=== PATIENT | male | born 1930 | race Caucasian/White ===

== ENCOUNTER 2016-07-21 19:35 | Emergency (ER) | payer OTHER ==
[~2016-07-21] VITALS: Ht 167.6 cm; Wt 81.6 kg
[~2016-07-21 19:35] MED LIST: ALLOPURINOL100 MG PO; ALLOPURINOL300 M1 PO; ALLOPURINOL300 MG PO; ASPIR 8181 MG PO; CARDIZEM CD180 M1 PO; COUMADIN1 M1 PO; COUMADIN6 M1 PO; FINASTERIDE5 MG PO; GEMFIBROZIL600 MG PO; GLUCOSAMINE500 MG PO; JANUMET 50-1,01 EACH PO; JANUVIA 50MG50 MG PO; KEPPRA500 M1 PO; LASIX20 M1 PO; MELATONIN3 M4 PO; METFORMIN1000 MG PO; METOPROLOL SUC200 M2 PO; METOPROLOL TART50 MG PO; OMEPRAZOLE40 MG PO; PERCOCET 325 MG1 TA2 PO; PROBENECID AND1 TAB PO; TAMSULOSIN HYD0.4 MG PO; TOPROL XL100 M1 PO
[2016-07-21 19:44] VITALS: BP 156/74
--- NOTE | 2016-07-21 20:00 | ED UPPER/LOWER EXTREMITY COMPL ---
History of Present Illness General Chief Complaint: Lower Extremity Injury Stated Complaint: "FELL A WEEK AGO, LEFT LEG PAIN" PER PT Source: patient Exam Limitations: no limitations Vital Signs & Intake/Output Vital Signs & Intake/Output Vital Signs Date Time Temp Pulse Resp B/P B/P Pulse O2 O2 Flow FiO2 Mean Ox Delivery Rate 07/22 1943 98.6 65 20 156/74 96 Room Air ED Intake and Output 07/22 0000 07/21 1200 Intake Total 120 Output Total Balance 120 Intake, Oral 120 Patient 180 lb Weight Allergies Coded Allergies: NO KNOWN ALLERGIES (10/30/13) Reconcile Medications Allopurinol 300 MG TABLET 1 TAB PO DAILY GOUT (Reported) Aspirin (Ecotrin) 81 MG TABLET.DR 1 TAB PO DAILY HEART HEALTH (Reported) Diltiazem HCl (Cardizem Cd) 180 MG CAP.ER.24H 1 CAP PO DAILY HIGH BLOOD PRESSURE (Reported) Finasteride 5 MG TABLET 1 TAB PO DAILY BPH (Reported) Furosemide (Lasix) 20 MG TABLET 1 TAB PO DAILY WATER RETENTION (Reported) Glucosamine Sulfate (Glucosamine) 500 MG CAP 1 CAP PO DAILY OSTEOARTHRITIS ( Reported) Levetiracetam (Keppra) 500 MG TABLET 500 MG PO BID Seizure Melatonin 3 MG TABLET 1 TAB PO QPM Sleep aid Metoprolol Succinate 200 MG TAB.ER.24H 1 TAB PO 8AM HIGH BLOOD PRESSURE ( Reported) Omeprazole 40 MG CAPSULE.DR 1 CAP PO DAILY GERD (Reported) Oxycodone HCl 5 MG TABLET 1 TAB PO BIDP PRN PAIN Sitagliptin Phos/Metformin HCl (Janumet 50-1,000 MG Tablet) 1 EACH TABLET 1 TAB PO DAILY DIABETES (Reported) Warfarin Sodium (Coumadin) 1 MG TABLET 1 TAB PO DAILY BLOOD THINNER (Reported ) As part of 7MG dosing on Tuesdays and Wednesdays Warfarin Sodium (Coumadin) 6 MG TABLET 1 TAB PO SEE ADMIN CRITERIA BLOOD THINNER (Reported) Pt takes 7MG on Tuesdays and Wednesdays and Takes 6MG rest of the days of the week. Triage Note: PER PT FELL OUT OF BED 2 WEEKS CONTINUES WITH PAIN TO L THIGH ALSO WITH SWELLING, NO KNEE PAIN Triage Nurses Notes Reviewed? yes Onset: Abrupt Duration: week(s): (2) Timing: recent history Severity: mild, moderate Pain/Injury Location: Left: Thigh. Method of Injury: direct blow Modifying Factors: Worsens With: movement. Associated Symptoms: swelling HPI: 85 year old male on Coumadin who presents to the ER with chief complaint left thigh swelling for 2 weeks after fall out of bed. He states that he hit his left thigh on the dresser. Patient is on Coumadin and has also been using Advil for pain. He states that swelling has been persistent but today got a little bit worse. No fever or chills. He has been able to a minute on it without any difficulty. Past History Travel History Traveled to [place] past 21 day No Medical History Any Pertinent Medical History? 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 No Review of Systems Review of Systems Constitutional: Denies: chills, fever. EENTM: Reports: no symptoms. Respiratory: Denies: see HPI, short of breath. Cardiovascular: Denies: chest pain, palpitations. Gastrointestinal/Abdominal: Reports: no symptoms. Genitourinary: Reports: no symptoms. Musculoskeletal: Reports: muscle pain. Skin: Reports: no symptoms. Neurological/Psychological: Reports: no symptoms. Hematologic/Endocrine: Denies: bruising, bleeding, polyuria, polydipsia. Immunological: Denies: splenectomy. All Other Systems: Reviewed and Negative Physical Exam Physical Exam General Appearance: well developed/nourished, alert, awake, mild distress Head: atraumatic Eyes: Bilateral: PERRL, EOMI. Ears, Nose, Throat: normal pharynx, normal ENT inspection, hearing grossly normal Neck: normal inspection, supple Cardiovascular/Respiratory: regular rate/rhythm Back: normal inspection Leg Left: normal range of motion, normal inspection Leg Right: normal range of motion, normal inspection Hip Left: normal range of motion, normal inspection Hip Right: normal range of motion, normal inspection Knee Left: normal range of motion, normal inspection Knee Right: normal range of motion Foot Left: normal inspection, normal range of motion Neurologic/Tendon: normal sensation, normal motor functions, normal tendon functions Skin: intact, normal color, warm/dry Lymphatic: no anterior cervical jacob Diagram Legs Front/Back 1) HEMATOMA NO ERYTHEMA, NO WARMTH Progress Differential Diagnosis: sprain, FRACTURE, HEMATOMA Plan of Care: Current Medications Sig/Pablo Start time Last Medication Dose Stop Time Status Admin Oxycodone/ 1 TAB ONCE ONE 07/21 2044 UNVr 07/21 Acetaminophen 07/21 (Percocet) Diagnostic Imaging: Viewed by Me: Radiology Read. Discussed w/RAD: Radiology Read. Radiology Impression: PATIENT: MECHELLE SPAIN PRESENT AGE : 85 PATIENT ACCOUNT NO: [id number] : 32 LOCATION: [facility] ORDERING PHYSICIAN: JAMILA GUERRA MD SERVICE DATE: 07/21/16 EXAM TYPE: RAD - XRY -AP PELVIS; XRY-FEMUR, LEFT 2 VIEWS EXAMINATION: XR PELVIS XR FEMUR, LEFT CLINICAL INFORMATION: Fell out of bed 2 weeks ago. Pain to thigh. COMPARISON: None TECHNIQUE: Frontal view of the pelvis. 2 views, 4 images of the left femur. FINDINGS: Pelvis: No fracture or dislocation. The femoral heads are well-seated within their respective acetabula. Mild degenerative changes of the hips with joint space narrowing. Degenerative changes at the lower lumbar spine. The pelvic rim is intact. The bowel gas pattern is unremarkable. Left femur: No fracture or cortical disruption. Anatomic alignment at the hip and knee. Moderate degenerative changes of the knee. Diffuse vascular calcifications are noted. Soft tissue calcification seen lateral to the distal femur.. IMPRESSION: No acute osseous abnormality of the pelvis or left femur. Degenerative changes. DICTATED BY: KIMBERLY MONTANEZ MD DATE/TIME DICTATED:07/21/162027 GUEST SERVICE AGENT:LILI DATE/TIME TRANSCRIBED:07/21/162027 CONFIDENTIAL, DO NOT COPY WITHOUT APPROPRIATE AUTHORIZATION. <Electronically signed in Other Vendor System> SIGNED BY: KIMBERLY MONTANEZ MD 07/21/162032 Departure Departure Time of Disposition: 2036 Disposition: HOME OR SELF CARE Condition: Stable Clinical Impression Primary Impression: Hematoma of left thigh Referrals: YAEL MADDOX,[facility] (PCP/Family) Additional Instructions: Take Tylenol as needed for pain. Take the oxycodone for break through pain. Please follow up with outpatient ultrasound tomorrow. Follow up with her doctor in the office. Return as needed. Departure Forms: Customer Survey General Discharge Information Prescriptions: Current Visit Scripts Oxycodone HCl 1 TAB PO BIDP PRN PAIN #10 TAB
--- NOTE | 2016-07-21 20:33 | RADIOLOGY REPORT ---
EXAMINATION: XR PELVIS XR FEMUR, LEFT CLINICAL INFORMATION: Fell out of bed 2 weeks ago. Pain to thigh. COMPARISON: None TECHNIQUE: Frontal view of the pelvis. 2 views, 4 images of the left femur. FINDINGS: Pelvis: No fracture or dislocation. The femoral heads are well-seated within their respective acetabula. Mild degenerative changes of the hips with joint space narrowing. Degenerative changes at the lower lumbar spine. The pelvic rim is intact. The bowel gas pattern is unremarkable. Left femur: No fracture or cortical disruption. Anatomic alignment at the hip and knee. Moderate degenerative changes of the knee. Diffuse vascular calcifications are noted. Soft tissue calcification seen lateral to the distal femur.. IMPRESSION: No acute osseous abnormality of the pelvis or left femur. Degenerative changes.
[2016-07-21] MEDS ORDERED: OXYCODONE HCL5 M1 PO (20:38)
== END 2016-07-21 20:45 ==
LOC: ERH 19:35
DX: S70.12XA Contusion of left thigh, initial encounter (principal); M79.89 Other specified soft tissue disorders; W06.XXXA Fall from bed, initial encounter; Y92.9 Unspecified place or not applicable; Y93.9 Activity, unspecified
CPT/HCPCS: 72170; 73552

== ENCOUNTER 2017-08-22 02:34 | Inpatient (IN) | payer OTHER ==
[~2017-08-22] VITALS: Ht 167.6 cm; Wt 82.6 kg
[~2017-08-22 02:34] MED LIST changes: +ALA-CORT30 GM TOP; -ASPIR 8181 MG PO; +ASPIRIN EC81 M1 PO; -CARDIZEM CD180 M1 PO; +CARDIZEM CD360 M1 PO; +DOXYCYCLINE HY100 M4 PO; +OMEPRAZOLE40 M1 PO; -OMEPRAZOLE40 MG PO; +OXYCODONE HCL5 M1 PO; +PREDNISONE10 M2 PO; +PROVENTIL HFA6.7 GM INH
--- NOTE | 2017-08-22 02:46 | ED PSYCHIATRIC COMPLAINT ---
History of Present Illness General Chief Complaint: General Adult Stated Complaint: "ACHING ALL OVER AND SEEING THINGS THAT ANIT THERE Source: patient, family Exam Limitations: no limitations Vital Signs & Intake/Output Vital Signs & Intake/Output Vital Signs Date Time Temp Pulse Resp B/P B/P Pulse O2 O2 Flow FiO2 Mean Ox Delivery Rate 08/23 1405 98.1 63 18 140/58 94 Room Air 08/23 1103 96.2 65 18 156/72 98 08/23 0855 98.2 70 20 146/80 95 Room Air 08/23 0829 97.8 67 18 144/81 08/23 0649 97.8 67 18 144/81 95 Room Air 08/23 0318 96.1 66 18 152/80 94 Room Air 08/22 2236 84 18 148/68 97 Room Air 08/22 2015 72 18 170/79 97 Room Air 08/22 1808 66 18 178/77 97 Room Air ED Intake and Output 08/23 0000 08/22 1200 Intake Total 240 Output Total Balance 240 Intake, Oral 240 Patient 180 lb Weight Weight Reported by Patient Measurement Method Reconcile Medications Albuterol Sulfate (Proventil Hfa) 90 MCG HFA.AER.AD 2 PUF INH Q4 PRN shortness of breath Allopurinol 300 MG TABLET 1 TAB PO DAILY GOUT (Reported) Aspirin (Ecotrin*) 81 MG TABLET. 1 TAB PO DAILY HEART HEALTH (Reported) Diltiazem HCl (Cardizem Cd) 360 MG CAP.ER.24H 1 CAP PO DAILY HBP (Reported) Furosemide (Lasix) 20 MG TABLET 1 TAB PO DAILY WATER RETENTION (Reported) Levetiracetam (Keppra) 500 MG TABLET 500 MG PO BID Seizure Metoprolol Succinate 200 MG TAB.ER.24H 1 TAB PO 8AM HIGH BLOOD PRESSURE ( Reported) Omeprazole 40 MG CAPSULE. 1 CAP PO DAILY GERD (Reported) Oxycodone HCl/Acetaminophen (Oxycodone-Acetaminophen 5-325) 5 MG-325 MG TABLET 1 TAB PO DAILY PRN PAIN (Reported) Potassium Chloride 20 MEQ TAB.ER.PRT 1 TAB PO DAILY SUPPLEMENT (Reported) Simvastatin (Simvastatin*) 20 MG TABLET 1 TAB PO QPM CHOLESTEROL (Reported) Warfarin Sodium (Coumadin) 1 MG TABLET 1 TAB PO DAILY BLOOD THINNER (Reported ) As part of 7MG dosing on Tuesdays and Wednesdays Warfarin Sodium (Coumadin) 6 MG TABLET 1 TAB PO SEE ADMIN CRITERIA BLOOD THINNER (Reported) Pt takes 7MG on Tuesdays and Wednesdays and Takes 6MG rest of the days of the week. Triage Nurses Notes Reviewed? yes Onset: Gradual Duration: day(s): Timing: recent history Severity: moderate Associated Symptoms: anxiety HPI: 86 yo gentleman presents with "body aches all over" and hallucinations for the past several days, getting worse. "I see things that aren't there... I hear voices... especially in my dreams." Per his son, "I was in the room with him and he has having a conversation with someone who wansn't there." He notes diffuse musle aches, "all over" in the muscles of his shoulders, back, and legs. He does not have focal joint pain or swelling, "just pain all over." He has no fever, chills, nausea, vomiting, diarrhea. He denies etoh and drugs. He denies SI/HI. He is otherwise well. (Denia MADDOX,Conor Harris) Allergies Coded Allergies: NO KNOWN ALLERGIES (NONE 08/23/17) (Nicole MADDOX,Aubrey Mcarthur) Past History Travel History Traveled to [place] past 21 day No Medical History Any Pertinent Medical History? see below for history Neurological: SEIZURES EENT: NONE Cardiovascular: hyperlipidemia, HYPERTENSION paroxysmal atrial fibrillation PACEMAKER LEFT CHEST Respiratory: NONE Gastrointestinal: GERD Hepatic: NONE Renal: benign prost hyperplasia Musculoskeletal: gout Psychiatric: NONE Endocrine: diabetes (type 2) Blood Disorders: NONE Cancer(s): NONE NURSING SPECIALIST/Reproductive: NONE Other Medical Hx: BPH History of MRSA: Yes History of VRE: No History of CDIFF: No Surgical History Surgical History: non-contributory Psychosocial History Who do you live with Son Services at Home None What is your primary language American Family History Family History, If Any: BROTHER FH: CAD (coronary artery disease) FH: diabetes mellitus SISTER FH: diabetes mellitus FATHER FH: HTN (hypertension) SON FH: colon cancer Hx Contributory? No (Denia MADDOX,Conor Harris) Review of Systems Review of Systems Constitutional: Reports: no symptoms. EENTM: Reports: no symptoms. Respiratory: Reports: no symptoms. Cardiovascular: Reports: no symptoms. GI: Reports: no symptoms. Genitourinary: Reports: no symptoms. Musculoskeletal: Reports: no symptoms. Skin: Reports: no symptoms. Neurological/Psychological: Reports: no symptoms. Hematologic/Endocrine: Reports: no symptoms. Immunologic/Allergic: Reports: no symptoms. All Other Systems: Reviewed and Negative (Denia MADDOX,Conor Harris) Physical Exam Physical Exam General Appearance: well developed/nourished, mild distress Head: atraumatic Eyes: Bilateral: PERRL, EOMI. Ears, Nose, Throat: normal pharynx, normal ENT inspection, hearing grossly normal Neck: normal inspection, supple Respiratory: normal breath sounds Cardiovascular: regular rate/rhythm Gastrointestinal: soft, non-tender Extremities: normal range of motion, muscle spasm and tenderness to palpation around bilateral shoulder girdle and upper back. . normal ROM. no wasting. Neurological/Psychiatric: no motor/sensory deficits, awake, anxious Appearance/Memory/Insight: disheveled, impaired insight Behavoir/Eye Contact/Speech: uncooperative, pt agitated, difficult to redirect, attempting to climb out of bed, speaking to people who are not present. Thoughts/Hallucinations: auditory hallucinations Skin: intact, normal color, warm/dry SAD PERSONS Done? patient not suicidal (Denia MADDOX,Conor Harris) Progress Differential Diagnosis: infection, dementia vs other. Plan of Care: Orders Procedure Date/time Status PROTHROMBIN TIME 08/24 06 Active CBC WITHOUT DIFFERENTIAL 08/24 06 Active BASIC ELECTROLYTES PLUS BUN&CR 08/24 0600 Active Heart Healthy Diet 08/23 D Active Seizure Precautions 08/23 1630 Active Pathway - chart 08/23 1551 Active EKG 08/23 1500 Active BLOOD CULTURE 08/23 1453 Active Weight 08/23 1434 Active Teach/Educate 08/23 1434 Active Pain Treatment and Response 08/23 1434 Active Nutritional Intake, Monitor 08/23 1434 Active Isolation 08/23 1434 Active Patient Care Conference 08/23 1434 Active Patient Safety Monitor 08/23 1347 Active Pathway - chart 08/23 1249 Active House Staff 08/23 1249 Active Patient Data 08/23 1249 Active Code Status 08/23 1249 Active Misc Message 08/23 1219 Active ED Holding Orders 08/23 1219 Active Vital Signs 08/23 1219 Active Code Status 08/23 1219 Complete Patient Data 08/23 1200 Active Admit to inpatient 08/23 1156 Active THYROID STIMULATING HORMONE 08/23 0808 Active HEPATIC FUNCTION PANEL 08/23 0808 Active GLYCOSYLATED HGB 08/23 0808 Active FREE T4 08/23 0808 Active VITAMIN B12 08/23 0808 Active URINALYSIS 08/23 0745 Complete CBC WITHOUT DIFFERENTIAL 08/23 0745 Complete BASIC METABOLIC PANEL 08/23 0745 Active SWALLOW EVALUATION 08/23 UNK Active Lab Add-on Test 08/23 UNK Active VTE Mechanical Prophylaxis 08/23 UNK Active Vital Signs 08/23 UNK Complete Intake & Output 08/23 UNK Complete Activity/Ambulation 08/23 UNK Active EEG SLEEP EXAM 08/23 UNK Active ELECTROENCEPHALOGRAM 08/23 UNK Active MISSING MEDICATION FORM 08/23 UNK Active PSYCHIATRIC CONSULT 08/23 UNK Active FingerStick- Glucose 08/22 0737 Active Intake & Output 08/22 0357 Active Current Medications Sig/Pablo Start time Last Medication Dose Stop Time Status Admin Diltiazem HCl 360 MG DAILY 08/24 0900 AC (Cardizem CD) Furosemide 20 MG DAILY 08/24 09 AC (Lasix) Omeprazole 40 MG DAILY AC 08/24 0700 AC (Prilosec) Heparin Sodium 5,000 UNIT Q8 08/23 2200 AC (Porcine) Atorvastatin Calcium 10 MG 1700 08/23 1700 CAN (Lipitor) Acetaminophen 650 MG Q6P PRN 08/23 1600 AC (Tylenol) Acetaminophen 1,000 MG Q6P PRN 08/23 1600 AC (Ofirmev) Aspirin Buffered 81 MG DAILY 08/23 1600 AC (Ecotrin) Allopurinol 300 MG DAILY 08/22 0900 AC 08/23 (Zyloprim) 0829 Aspirin Buffered 81 MG DAILY 08/22 0900 AC 08/23 (Ecotrin) 0829 Levetiracetam 500 MG BID 08/22 0900 AC 08/23 (Keppra) 0829 Metoprolol Succinate 200 MG DAILY 08/22 0900 AC 08/23 (Toprol Xl) 0829 Albuterol Sulfate 2 PUF Q4 PRN 08/22 0715 AC (Ventolin) Laboratory Tests 08/23/17 0814: Urine Color YEL, Urine Clarity CLEAR, Urine pH 6.0, Ur Specific Friendly 1.025, Urine Protein 30 H, Urine Ketones 15 H, Urine Nitrite NEG, Urine Bilirubin NEG @ICTO, Urine Urobilinogen 0.2, Ur Leukocyte Esterase NEG, Ur Microscopic SEDIMENT EXAMINED, Urine RBC 1-3, Ur Epithelial Cells RARE, Urine Hemoglobin MOD H, Urine Glucose NEG 08/23/17 0808: Anion Gap 14, Estimated GFR > 60, BUN/Creatinine Ratio 18.9, Glucose 117 H, Hemoglobin A1c Pending, Calcium 9.0, Total Bilirubin 1.5 H, Direct Bilirubin 0.6 H, AST 50, ALT 32, Alkaline Phosphatase 85, Total Protein 7.1, Albumin 4.0, Vitamin B12 808, TSH 4.810 H, Free T4 1.76, CBC w Diff NO MAN DIFF REQ, RBC 4.67 L, MCV 93.7, MCH 31.6 H, MCHC 33.8, RDW 15.3 H, MPV 9.6, Gran % 73.9, Lymphocytes % 10.0 L, Monocytes % 12.6 H, Eosinophils % 3.2, Basophils % 0.3, Absolute Granulocytes 5.0, Absolute Lymphocytes 0.7 L, Absolute Monocytes 0.9 H, Absolute Eosinophils 0.2, Absolute Basophils 0 Microbiology 08/23 1452 BLOOD: Blood Culture - COLB 08/23 1452 BLOOD: Blood Culture - COLB Initial ED EKG: nsr, left axis deviation, no acute change Hand-Off Endorsed To: Aubrey Rivera MD Endorsed Time: 0700 Pending: CT, consult (Denia MADDOX,Conor Harris) Diagnostic Imaging: Discussed w/RAD: CT Scan. Radiology Impression: PATIENT: MECHELLE SPAIN PRESENT AGE : 86 PATIENT ACCOUNT NO: [id number] : 32 LOCATION: [facility] ORDERING PHYSICIAN: Conor Loza MD SERVICE DATE: 08/22/17 EXAM TYPE: CAT - CT HEAD WO IV CONTRAST EXAMINATION: CT HEAD WITHOUT CONTRAST CLINICAL INFORMATION: Altered mental status. COMPARISON: None TECHNIQUE: Contiguous axial imaging was performed from the skull base to vertex without intravenous administration of contrast. DLP: 620 mGy-cm FINDINGS: There is no evidence of acute intracranial hemorrhage or territorial infarction. No abnormal mass effect or midline shift is seen. There is hypodensity in the right anterior internal capsule and the caudate nucleus suggestive of lacunar infarction. Velásquez to white matter differentiation is well preserved. No extra-axial fluid collections are identified. There is a right parietal extra-axial calcification measuring 0.3 x 0.6 cm. It is likely calcified meningioma or dural calcification and appears stable. The lateral ventricles are enlarged and so are the cortical sulci. There is diffuse periarticular hypodensity in both cerebral hemispheres without mass effect. There is a hyperdense appearing tip of basilar artery likely secondary to atherosclerosis. However an aneurysm in this region cannot be excluded. The osseous structures and soft tissues are normal. The mastoid air cells and visualized portions of the paranasal sinuses are well aerated. IMPRESSION: No acute intracranial process seen. 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 Age-related cerebral atrophy versus chronic small ischemic changes. Prominent hyperdensity at the tip of the basilar artery. Question atherosclerosis versus aneurysm. DICTATED BY: Soha MADDOX,Abdelrahman DATE/TIME DICTATED:08/22/171352 SEAFOOD PREPARER:LILI DATE/TIME TRANSCRIBED:08/22/171352 CONFIDENTIAL, DO NOT COPY WITHOUT APPROPRIATE AUTHORIZATION. <Electronically signed in Other Vendor System> SIGNED BY: Soha MADDOX,Abdelrahman 08/22/17 1623, PATIENT: MECHELLE SPAIN PRESENT AGE: 86 PATIENT ACCOUNT NO: [id number] : 32 LOCATION: [facility] ORDERING PHYSICIAN: Aubrey Rivera MD SERVICE DATE: 08/23/17 EXAM TYPE : CAT - CT HEAD WO IV CONTRAST EXAMINATION: CT HEAD WITHOUT CONTRAST CLINICAL INFORMATION: Altered mental status. COMPARISON: Head CT 08/22/2017. TECHNIQUE: Contiguous axial imaging was performed from the skull base to vertex without intravenous administration of contrast. DLP: 617 mGy-cm. FINDINGS: There is no intracranial hemorrhage, large infarction, or parenchymal mass lesion. There is no extra-axial collection. There is mild scattered hypoattenuation in the bilateral cerebral white matter, which is nonspecific but likely reflects small vessel disease. There is chronic lacunar infarction within the right basal ganglia and in the left cerebellum. There is a subcentimeter focus of mineralization along the right parietal convexity which could represent a densely mineralized meningioma (series 4 image 15). There is mild diffuse brain parenchymal volume loss with prominence of the ventricles and sulci. The ventricles are stable in size without evidence of hydrocephalus. The visualized paranasal sinuses and mastoid air cells are clear. IMPRESSION: - No acute intracranial abnormality. - Redemonstration of chronic changes including right basal ganglia and left cerebellum lacunar infarct, mild small vessel ischemia, and mild diffuse brain parenchymal volume loss. 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 DICTATED BY: Jayashree Lewis MD DATE/TIME DICTATED:08/23/17923 SEAFOOD PREPARER:LILI DATE/ TIME TRANSCRIBED:08/23/17923 CONFIDENTIAL, DO NOT COPY WITHOUT APPROPRIATE AUTHORIZATION. <Electronically signed in Other Vendor System> SIGNED BY: Jayashree Lewis MD 08/23/1734 Comments: 08/22/2017 8:34:30 AM patient signed out to me by Dr. 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 08/22/2017 6:18:15 PM repeated attempts to awaken Mechelle to assess for possible crisis evaluation has resulted in only unintelligible responses. The patient resists eye opening. With incontinence care the patient did again respond with a grumbled response and he attempted to pull up his pants during cleaning. But he remains to altered for an evaluation by crisis to assess the possibility of underlying psychiatric disorder. Since the patient has not returned to baseline I feel he now requires hospitalization. 08/22/2017 7:04:03 PM during my discussion with the hospitalist about hospitalizing Mechelle, I saw him sitting at the bedside with ED staff asking to go to the bathroom. He seems to have improved considerably over the last hour or so. At this point I have held on hospitalizing him in hopes that he might be evaluated by crisis given the lack of any clear explanation of his altered mental status from a medical standpoint. 08/22/2017 7:56:06 PM patient's case discussed with the on-call psychiatrist recommends hALDOL and Atmilo (ordered). 08/22/2017 9:24:32 PM patient signed out to Dr. Loza at shift job change crew member. 08/23/2017 7:32:44 AM patient signed out to me by Dr. Loza at shift job change crew member. 08/23/2017 8:05:23 AM patient's son is here with him in the emergency department. Patient's son states that he has no known history of dementia and is not sure if he has had a prior stroke. He states prior to the patient's arrival to the emergency department he had been driving, doing errands. Additional evaluation ordered along with repeat CT scan. 08/23/2017 9:31:36 AM repeat labs are unremarkable. Patient has eaten breakfast according to his son. He seems dramatically improved and at this point capable of a conversation. I'm awaiting the repeat CAT scan to assess for any acute changes. 10:24am. D/W dr moyer, saw dr mao after ed visit for seizure. no clear dx of seizures. consider sleep studies. suggests admit, neuro consult. (Nicole MADDOX,Aubrey Mcarthur) Departure Departure Disposition: STILL A PATIENT Condition: Stable Clinical Impression Primary Impression: Hallucinations Secondary Impressions: Myalgia Referrals: Kaycee MADDOX,Javy [place] (PCP/Family) Departure Forms: Customer Survey General Discharge Information Comments pt to be signed out to dr. rivera, 08/23/17, 7am (Denia MADDOX,Conor Harris) Admission Note Spoke With: Alessandra Spencer MD Documentation of Exam: Documentation of any treatments & extenuating circumstances including Concerns Regarding Discharge (functional status, medication knowledge or non-compliance, living conditions, etc.) that warrant an admission rather than observation: Patient is experiencing a persistent waxing and waning altered mental status of an unclear etiology. He cannot be treated safely as an outpatient because he would be unable to comply with outpatient treatment planning given his altered mental status. He is also prone to episodes of agitation placing him at risk of injury not only to himself but others. I feel he requires hospitalization for additional testing and consideration of consultation with neurology and psychiatry to better define the etiology of the patient's current mental status. Given his advanced age and medical comorbidities, his treatment and recovery will likely be prolonged and complicated. I feel he'll require a multiple day hospitalization. (Nicole MADDOX,Aubrey Mcarthur) Critical Care Note Critical Care Note Critical Care Time: 30-74 min (Aubrey Rivera MD)
[2017-08-22 03:21] LABS: ABSOLUTE BASOPHIL COUNT 0 /CUMM (0.0-0.2); ABSOLUTE EOSINOPHIL COUNT 0.2 /CUMM (0.0-0.7); ABSOLUTE GRANULOCYTE CT 4.5 /CUMM (1.4-6.5); ABSOLUTE LYMPH COUNT 0.7 /CUMM (1.2-3.4); ABSOLUTE MONOCYTE COUNT 0.7 /CUMM (0.10-0.60); BASOPHIL % 0.4 % (0.0-2.0); EOSINOPHIL % 3.8 % (0-5); GRANULOCYTE % 73.1 % (42.2-75.2); HEMATOCRIT 40.1 % (42-52); MEAN CORPUSCULAR HGB 31.4 PG (27.0-31.0); MEAN CORPUSCULAR VOLUME 95.2 FL (80.0-94.0); MEAN PLATELET VOLUME 9.7 FL (7.4-10.4); PLATELET COUNT 130 /CUMM (130-400); RBC DISTRIBUTION WIDTH 15.5 % (11.5-14.5); RED BLOOD CELL CT 4.21 /CUMM (4.70-6.10); WHITE BLOOD CELL COUNT 6.1 /CUMM (4.8-10.8)
[2017-08-22 03:31] LABS: PT 17.3 SEC (9.4-12.5); PTT 29 SEC (25-37)
[2017-08-22] MEDS ORDERED: SIMVASTATIN20 M2 PO (12:07)
[2017-08-22] MEDS ORDERED: OXYCODONE-ACET1 EACH PO (12:08)
[2017-08-22] MEDS ORDERED: POTASSIUM CHLO20 ME2 PO (12:09)
--- NOTE | 2017-08-22 16:23 | CT SCAN REPORT ---
EXAMINATION: CT HEAD WITHOUT CONTRAST CLINICAL INFORMATION: Altered mental status. COMPARISON: None TECHNIQUE: Contiguous axial imaging was performed from the skull base to vertex without intravenous administration of contrast. DLP: 620 mGy-cm FINDINGS: There is no evidence of acute intracranial hemorrhage or territorial infarction. No abnormal mass effect or midline shift is seen. There is hypodensity in the right anterior internal capsule and the caudate nucleus suggestive of lacunar infarction. Velásquez to white matter differentiation is well preserved. No extra-axial fluid collections are identified. There is a right parietal extra-axial calcification measuring 0.3 x 0.6 cm. It is likely calcified meningioma or dural calcification and appears stable. The lateral ventricles are enlarged and so are the cortical sulci. There is diffuse periarticular hypodensity in both cerebral hemispheres without mass effect. There is a hyperdense appearing tip of basilar artery likely secondary to atherosclerosis. However an aneurysm in this region cannot be excluded. The osseous structures and soft tissues are normal. The mastoid air cells and visualized portions of the paranasal sinuses are well aerated. IMPRESSION: No acute intracranial process seen. 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 Age-related cerebral atrophy versus chronic small ischemic changes. Prominent hyperdensity at the tip of the basilar artery. Question atherosclerosis versus aneurysm.
--- NOTE | 2017-08-22 20:19 | ED PSY CRISIS COLLATERAL NOTE ---
Collateral Note Collateral Note Family/Inform/Thi Contacts: Contacted patient's son Jonathan Broussard at [phone] for collateral information: Son reports that patient lives at his home along with his two adult sons. Patient's adult son reports that the patient is at baseline overall independent and active. Son helps with cooking, shopping, and laundry. Son states patient is "off / on - hes okay at some points. When he goes to sleephe does a lot of talking." Son reports the patient has been experiencing visual halluciantions recently stating "the other night he was seeing people in the room that weren't there." Son reports he argues with patient when he tries to drive his car. Son notes that about 3 months ago (ED visit mid April 2017), patient was evaluated in the emergency department and there was report of visual hallucinations.
[2017-08-23 08:19] LABS: ABSOLUTE BASOPHIL COUNT 0 /CUMM (0.0-0.2); ABSOLUTE EOSINOPHIL COUNT 0.2 /CUMM (0.0-0.7); ABSOLUTE LYMPH COUNT 0.7 /CUMM (1.2-3.4); ABSOLUTE MONOCYTE COUNT 0.9 /CUMM (0.10-0.60); BASOPHIL % 0.3 % (0.0-2.0); EOSINOPHIL % 3.2 % (0-5); GRANULOCYTE % 73.9 % (42.2-75.2); HEMATOCRIT 43.8 % (42-52); MEAN CORPUSCULAR HGB 31.6 PG (27.0-31.0); MEAN CORPUSCULAR HGB CONC 33.8 G/DL (33.0-37.0); MEAN CORPUSCULAR VOLUME 93.7 FL (80.0-94.0); MEAN PLATELET VOLUME 9.6 FL (7.4-10.4); PLATELET COUNT 144 /CUMM (130-400); RBC DISTRIBUTION WIDTH 15.3 % (11.5-14.5); RED BLOOD CELL CT 4.67 /CUMM (4.70-6.10); WHITE BLOOD CELL COUNT 6.8 /CUMM (4.8-10.8)
--- NOTE | 2017-08-23 09:34 | CT SCAN REPORT ---
EXAMINATION: CT HEAD WITHOUT CONTRAST CLINICAL INFORMATION: Altered mental status. COMPARISON: Head CT 08/22/2017. TECHNIQUE: Contiguous axial imaging was performed from the skull base to vertex without intravenous administration of contrast. DLP: 617 mGy-cm. FINDINGS: There is no intracranial hemorrhage, large infarction, or parenchymal mass lesion. There is no extra-axial collection. There is mild scattered hypoattenuation in the bilateral cerebral white matter, which is nonspecific but likely reflects small vessel disease. There is chronic lacunar infarction within the right basal ganglia and in the left cerebellum. There is a subcentimeter focus of mineralization along the right parietal convexity which could represent a densely mineralized meningioma (series 4 image 15). There is mild diffuse brain parenchymal volume loss with prominence of the ventricles and sulci. The ventricles are stable in size without evidence of hydrocephalus. The visualized paranasal sinuses and mastoid air cells are clear. IMPRESSION: - No acute intracranial abnormality. - Redemonstration of chronic changes including right basal ganglia and left cerebellum lacunar infarct, mild small vessel ischemia, and mild diffuse brain parenchymal volume loss. 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
--- NOTE | 2017-08-23 12:42 | History & Physical ---
General Information and HPI MD Statement: I have seen and personally examined MECHELLE SPAIN and documented this H&P. The patient is a 86 year old M who presented with a patient stated chief complaint of []. Allergies/Medications Allergies: Coded Allergies: NO KNOWN ALLERGIES (NONE 08/23/17) Home Med list Albuterol Sulfate (Proventil Hfa) 90 MCG HFA.AER.AD 2 PUF INH Q4 PRN shortness of breath Allopurinol 300 MG TABLET 1 TAB PO DAILY GOUT (Reported) Aspirin (Ecotrin*) 81 MG TABLET.DR 1 TAB PO DAILY HEART HEALTH (Reported) Diltiazem HCl (Cardizem Cd) 360 MG CAP.ER.24H 1 CAP PO DAILY HBP (Reported) Furosemide (Lasix) 20 MG TABLET 1 TAB PO DAILY WATER RETENTION (Reported) Levetiracetam (Keppra) 500 MG TABLET 500 MG PO BID Seizure Metoprolol Succinate 200 MG TAB.ER.24H 1 TAB PO 8AM HIGH BLOOD PRESSURE ( Reported) Omeprazole 40 MG CAPSULE.DR 1 CAP PO DAILY GERD (Reported) Oxycodone HCl/Acetaminophen (Oxycodone-Acetaminophen 5-325) 5 MG-325 MG TABLET 1 TAB PO DAILY PRN PAIN (Reported) Potassium Chloride 20 MEQ TAB.ER.PRT 1 TAB PO DAILY SUPPLEMENT (Reported) Simvastatin (Simvastatin*) 20 MG TABLET 1 TAB PO QPM CHOLESTEROL (Reported) Warfarin Sodium (Coumadin) 1 MG TABLET 1 TAB PO DAILY BLOOD THINNER (Reported ) As part of 7MG dosing on Tuesdays and Wednesdays Warfarin Sodium (Coumadin) 6 MG TABLET 1 TAB PO SEE ADMIN CRITERIA BLOOD THINNER (Reported) Pt takes 7MG on Tuesdays and Wednesdays and Takes 6MG rest of the days of the week. 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 child Services at Home: None Primary Language: Togolese ETOH Use: denies use Illicit Drug Use: denies illicit drug use Exam & Diagnostic Data Last 24 Hrs of Vital Signs/I&O Vital Signs Date Time Temp Pulse Resp B/P B/P Pulse O2 O2 Flow FiO2 Mean Ox Delivery Rate 08/23 1103 96.2 65 18 156/72 98 08/23 0855 98.2 70 20 146/80 95 Room Air 08/23 0829 97.8 67 18 144/81 08/23 0649 97.8 67 18 144/81 95 Room Air 08/23 0318 96.1 66 18 152/80 94 Room Air 08/22 2236 84 18 148/68 97 Room Air 08/22 2015 72 18 170/79 97 Room Air 08/22 1808 66 18 178/77 97 Room Air 08/22 1609 97.3 68 18 139/77 99 Room Air 08/22 1405 98.0 61 18 120/64 96 Room Air 08/22 1351 61 18 136/70 98 Room Air Intake & Output 08/23 1600 08/23 0800 08/23 0000 Intake Total 1000 240 Output Total 400 Balance 600 240 Intake, IV 1000 Intake, Oral 240 Output, Urine 400 Core Measures/Misc (11/14) Acute Coronary Syndrome ACS Diagnosis: No Congestive Heart Failure Congestive Heart Failure Diagnosis No Cerebrovascular Accident CVA/TIA Diagnosis: No VTE (View Protocol) VTE Risk Factors Acute Medical Illness No Mechanical VTE Prophylaxis d/t N/A MechProphylax Ordered No VTE Pharm Prophylaxis d/t NA PharmProphylax ordered Sepsis (View protocol) Sepsis Present: No If YES complete Sepsis Event Note If YES complete Sepsis Event Note
--- NOTE | 2017-08-23 12:47 | History & Physical ---
Sushma Casiano MD 08/23/17 1246: General Information and HPI MD Statement: I have seen and personally examined MECHELLE SPAIN and documented this H&P. The patient is a 86 year old M who presented with a patient stated chief complaint of []. Source of Information: family, old records, EMS Exam Limitations: clinical condition, confusion History of Present Illness: Patient is a 86-year-old male with past medical history significant for seizures , hypertension, paroxysmal atrial fibrillation, pacemaker placement, GERD, BPH, diabetes mellitus type 2, history of MRSA presented to [facility] with whole-body pains and auditory/visual hallucinations. Apparently patient has been having difficulties with sleeping and usually has a lot of twitching/tremors at rest. He was admitted a year ago found to have normal EEG while evaluating for possible seizures started on Keppra. He follows Dr. Kevin. Patient did have occasional episodes of hallucinations but they resolve within no time. Tuesday night (08/21/2017) he started experiencing active visual/artery hallucinations reported his son that he is very nervous about it and came to ER for further evaluation. For the past 2 days he has been in ER. Reports these symptoms has been going on for a few days. He received multiple doses of benzos including haldol, lorazepam without significant improvement. He remained delirious with a sitter in place. Allergies/Medications Allergies: Coded Allergies: NO KNOWN ALLERGIES (NONE 08/23/17) Home Med list Albuterol Sulfate (Proventil Hfa) 90 MCG HFA.AER.AD 2 PUF INH Q4 PRN shortness of breath Allopurinol 300 MG TABLET 1 TAB PO DAILY GOUT (Reported) Aspirin (Ecotrin*) 81 MG TABLET.DR 1 TAB PO DAILY HEART HEALTH (Reported) Diltiazem HCl (Cardizem Cd) 360 MG CAP.ER.24H 1 CAP PO DAILY HBP (Reported) Furosemide (Lasix) 20 MG TABLET 1 TAB PO DAILY WATER RETENTION (Reported) Levetiracetam (Keppra) 500 MG TABLET 500 MG PO BID Seizure Metoprolol Succinate 200 MG TAB.ER.24H 1 TAB PO 8AM HIGH BLOOD PRESSURE ( Reported) Omeprazole 40 MG CAPSULE.DR 1 CAP PO DAILY GERD (Reported) Oxycodone HCl/Acetaminophen (Oxycodone-Acetaminophen 5-325) 5 MG-325 MG TABLET 1 TAB PO DAILY PRN PAIN (Reported) Potassium Chloride 20 MEQ TAB.ER.PRT 1 TAB PO DAILY SUPPLEMENT (Reported) Simvastatin (Simvastatin*) 20 MG TABLET 1 TAB PO QPM CHOLESTEROL (Reported) Warfarin Sodium (Coumadin) 1 MG TABLET 1 TAB PO DAILY BLOOD THINNER (Reported ) As part of 7MG dosing on Tuesdays and Wednesdays Warfarin Sodium (Coumadin) 6 MG TABLET 1 TAB PO SEE ADMIN CRITERIA BLOOD THINNER (Reported) Pt takes 7MG on Tuesdays and Wednesdays and Takes 6MG rest of the days of the week. 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 Home Who Do You Live With? child Services at Home: None Primary Language: Swiss ETOH Use: denies use Illicit Drug Use: denies illicit drug use Functional Ability ADLs Independent: dressing, eating, toileting, bathing. Ambulation: independent IADLs Needs Assist: shopping, housework, finances, food prep, telephone, transportation, medication admin. Review of Systems Review of Systems Constitutional: Reports: see HPI. Comments Unable to provide due to clinical condition Exam & Diagnostic Data Last 24 Hrs of Vital Signs/I&O Vital Signs Date Time Temp Pulse Resp B/P B/P Pulse O2 O2 Flow FiO2 Mean Ox Delivery Rate 08/23 1103 96.2 65 18 156/72 98 08/23 0855 98.2 70 20 146/80 95 Room Air 08/23 0829 97.8 67 18 144/81 08/23 0649 97.8 67 18 144/81 95 Room Air 08/23 0318 96.1 66 18 152/80 94 Room Air 08/22 2236 84 18 148/68 97 Room Air 08/22 2014 72 18 170/79 97 Room Air 08/22 1808 66 18 178/77 97 Room Air 08/22 1609 97.3 68 18 139/77 99 Room Air 08/22 1405 98.0 61 18 120/64 96 Room Air 08/22 1351 61 18 136/70 98 Room Air Intake & Output 08/23 1600 08/23 0800 08/23 0000 Intake Total 1000 240 Output Total 400 Balance 600 240 Intake, IV 1000 Intake, Oral 240 Output, Urine 400 Physical Exam General Appearance Alert, Oriented X3, Moderate Distress Skin No Rashes, No Breakdown Skin Temp/Moisture Exam: Warm/Dry Sepsis Skin Exam (color): Normal for Ethnicity HEENT Atraumatic, PERRLA, EOMI Neck Supple Cardiovascular Normal S1, Normal S2 Lungs Clear to Auscultation, Normal Air Movement Abdomen Normal Bowel Sounds, mild guarding Neurological garbled speech waxes and wanes with normal speech. fluctuating cognition. rigidity with passive flexion Extremities No Clubbing, No Cyanosis, No Edema Vascular Normal Pulses, Pulses Symmetrical Last 24 Hrs of Labs/Jayme: Laboratory Tests 08/23/17 0814: Urine Color YEL, Urine Clarity CLEAR, Urine pH 6.0, Ur Specific Mystic 1.025, Urine Protein 30 H, Urine Ketones 15 H, Urine Nitrite NEG, Urine Bilirubin NEG @ICTO, Urine Urobilinogen 0.2, Ur Leukocyte Esterase NEG, Ur Microscopic SEDIMENT EXAMINED, Urine RBC 1-3, Ur Epithelial Cells RARE, Urine Hemoglobin MOD H, Urine Glucose NEG 08/23/17 0808: Anion Gap 14, Estimated GFR > 60, BUN/Creatinine Ratio 18.9, Glucose 117 H, Calcium 9.0, Vitamin B12 808, TSH 4.810 H, Free T4 1.76, CBC w Diff NO MAN DIFF REQ, RBC 4.67 L, MCV 93.7, MCH 31.6 H, MCHC 33.8, RDW 15.3 H, MPV 9.6, Gran % 73.9, Lymphocytes % 10.0 L, Monocytes % 12.6 H, Eosinophils % 3.2, Basophils % 0.3, Absolute Granulocytes 5.0, Absolute Lymphocytes 0.7 L, Absolute Monocytes 0.9 H, Absolute Eosinophils 0.2, Absolute Basophils 0 Microbiology 08/23 1453 BLOOD: Blood Culture - [facility] 08/23 1453 BLOOD: Blood Culture - [facility] Assessment/Plan Assessment: Patient is a 86-year-old male with past medical history significant for seizures , hypertension, paroxysmal atrial fibrillation, pacemaker placement, GERD, BPH, diabetes mellitus type 2, history of MRSA presented to [facility] with whole-body pains and auditory/visual hallucinations. Patient was being worked up with for sleep disorder. Reportedly having hallucinations in sleep and asleep during day time. Rapid progression recently and claim history shows Percocet. ROS per family negative. VS stable at presentation, afebrile. Physical exam - waxing and wanning cognition. Unable to perform MMSE/MOCA due to fluctuating consiousness. Alert and oriented X 3, makes conversations transiently. Dyskinetic with twitching and restless. Heart S1, S2 normal. Lungs clear. Abdomen - distended, mild guarding, normal bowel sounds. No edema. Labs are unremarakble except for mild elevation bilirubin, K of 5.2. TSH 4, free T4 and B12 normal. Differential Auditory/visual hallucinations, difficulty with sleeping, twitching, rigidity -- appears more towards Lewy body dementia with acute worsening with pain medications. Other possibilities are Narcolepsy, Psychogenic nonepileptic seizures, drug induced delirium, meningioma causing hallucinations/seizures pressing on cerebrum. Problem list 1. Delirium in the setting of Benzos and opiates 2. Sleep disorder - follows , ongoing work up 3. HTN 4. Paroxysmal A.fib on warfarin 5. Pacemaker placement 6. DM Plan Confirm home medications Admit to general medicine floor Delirium in the setting of Benzos and opiates Patient had predisposing factors like sleep disorder/probably lewy body at baseline. * TSH, free T4, B12 levels * Avoid Benzos and opiates * Neuro consult with * EEG * Psych consult * Sitter 1:[address] * QTc 479, can give olanzepine but avoid if can Paroxysmal A.fib on warfarin Follows . Currently on pacemaker. * Warfarin 7.5mg today. * Check PT/INR. * Continue Diltiazem and warfarin. * confirm metoprolol dose. DM: Accuchecks, ISS. DVT prophylaxis: warfarin Code status: full code As Ranked By This Provider Problem List: 1. Medication reaction 2. Hallucinations 3. Full code status 4. DM (diabetes mellitus) 5. HTN (hypertension) Core Measures/Misc (11/14) Acute Coronary Syndrome ACS Diagnosis: No Congestive Heart Failure Congestive Heart Failure Diagnosis No Cerebrovascular Accident CVA/TIA Diagnosis: No VTE (View Protocol) VTE Risk Factors Acute Medical Illness No Mechanical VTE Prophylaxis d/t N/A MechProphylax Ordered No VTE Pharm Prophylaxis d/t NA PharmProphylax ordered Sepsis (View protocol) Sepsis Present: No If YES complete Sepsis Event Note If YES complete Sepsis Event Note Resident Review Statement Resident Statement: examined this patient, discussed with analysis internship, agreed with analysis internship, discussed with family, reviewed EMR data (avail), discussed with nursing , discussed with case mgmt, reviewed images, amended to note Other Findings: as above Bjorn MADDOX,[facility] 08/23/17 1534: Core Measures/Misc (11/14) Sepsis (View protocol) If YES complete Sepsis Event Note If YES complete Sepsis Event Note Attending MD Review Statement Attending Statement Attending MD Statement: examined this patient, discuss w/resident/PA/WINDOWS DEPLOYMENT TECHNICIAN, agreed w/resident/PA/WINDOWS DEPLOYMENT TECHNICIAN, discussed with family, reviewed EMR data (avail), discussed with nursing, discussed with case mgmt, reviewed images, amended to note Attending Assessment/Plan: 86 y/o M with pmh sig for seizures, hypertension, paroxysmal atrial fibrillation , pacemaker placement, GERD, BPH, diabetes mellitus type 2, history of MRSA, p/w bizzare behavior. He was having hallucinations. History was obtained from son. Patient was diagnosed with seizures about 2 years ago and since then he has been on Keppra. Son mentioned that sometimes he speaks and has these movements during sleep. On Tuesday night he was acting bizarre, he was reaching out for which were not there. He was seeing things which are not. He was hearing things which were not there. Patient himself did mention that he was having hallucinations as he is being told by his son. He denies any tremors. Son denies any urinary or bowel incontinence. No fevers or chills. Off note he was prescribed Percocet and of main by his doctor for arthritis pain. No other changes in his medications. Denies any urinary complaints, cough, shortness of breath. Vital Signs Date Time Temp Pulse Resp B/P B/P Pulse O2 O2 Flow FiO2 Mean Ox Delivery Rate 08/23 1405 98.1 63 18 140/58 94 Room Air 08/23 1103 96.2 65 18 156/72 98 08/23 0855 98.2 70 20 146/80 95 Room Air 08/23 0829 97.8 67 18 144/81 08/23 0649 97.8 67 18 144/81 95 Room Air 08/23 0318 96.1 66 18 152/80 94 Room Air 08/22 2236 84 18 148/68 97 Room Air 08/22 2014 72 18 170/79 97 Room Air 08/22 1808 66 18 178/77 97 Room Air 08/22 1609 97.3 68 18 139/77 99 Room Air on exam; awake, nad. cv; s1,s2, rrr resp; clear abd; soft, nt, bs+ ext; no edema. Laboratory Tests 08/23 08/23 0814 0808 Chemistry Sodium (137 - 145 mmol/L) 141 Potassium (3.5 - 5.1 mmol/L) 5.2 H Chloride (98 - 107 mmol/L) 103 Carbon Dioxide (22 - 30 mmol/L) 24 Anion Gap (5 - 16) 14 BUN (9 - 20 mg/dL) 17 Creatinine (0.7 - 1.2 mg/dL) 0.9 Estimated GFR (>60 ml/min) > 60 BUN/Creatinine Ratio (7 - 25 %) 18.9 Glucose (65 - 99 mg/dL) 117 H Calcium (8.4 - 10.2 mg/dL) 9.0 Vitamin B12 (239 - 931 pg/mL) 808 TSH (0.270 - 4.200 uIU/mL) 4.810 H Free T4 (0.85 - 1.93 ng/dL) 1.76 Hematology CBC w Diff NO MAN DIFF REQ WBC (4.8 - 10.8 /CUMM) 6.8 RBC (4.70 - 6.10 /CUMM) 4.67 L Hgb (14.0 - 18.0 G/DL) 14.8 Hct (42 - 52 %) 43.8 MCV (80.0 - 94.0 FL) 93.7 MCH (27.0 - 31.0 PG) 31.6 H MCHC (33.0 - 37.0 G/DL) 33.8 RDW (11.5 - 14.5 %) 15.3 H Plt Count (130 - 400 /CUMM) 144 MPV (7.4 - 10.4 FL) 9.6 Gran % (42.2 - 75.2 %) 73.9 Lymphocytes % (20.5 - 51.1 %) 10.0 L Monocytes % (1.7 - 9.3 %) 12.6 H Eosinophils % (0 - 5 %) 3.2 Basophils % (0.0 - 2.0 %) 0.3 Absolute Granulocytes (1.4 - 6.5 /CUMM) 5.0 Absolute Lymphocytes (1.2 - 3.4 /CUMM) 0.7 L Absolute Monocytes (0.10 - 0.60 /CUMM) 0.9 H Absolute Eosinophils (0.0 - 0.7 /CUMM) 0.2 Absolute Basophils (0.0 - 0.2 /CUMM) 0 Urines Urine Color (YEL,AMB,STR) YEL Urine Clarity (CLEAR) CLEAR Urine pH (5.0 - 8.0) 6.0 Ur Specific Mystic (1.001 - 1.035) 1.025 Urine Protein (NEG,<30 MG/DL) 30 H Urine Ketones (NEG) 15 H Urine Nitrite (NEG) NEG Urine Bilirubin (NEG) NEG@ICTO Urine Urobilinogen (0.1 - 1.0 EU/dl) 0.2 Ur Leukocyte Esterase (NEG) NEG Ur Microscopic SEDIMENT EXAMINED Urine RBC (0 - 5 /HPF) 1-3 Ur Epithelial Cells (NONE,FEW) RARE Urine Hemoglobin (NEG) MOD H Urine Glucose (N MG/DL) NEG CT head: IMPRESSION: No acute intracranial process seen. 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 Age-related cerebral atrophy versus chronic small ischemic changes. Prominent hyperdensity at the tip of the basilar artery. Question atherosclerosis versus aneurysm. Repeat CT head: IMPRESSION: - No acute intracranial abnormality. - Redemonstration of chronic changes including right basal ganglia and left cerebellum lacunar infarct, mild small vessel ischemia, and mild diffuse brain parenchymal volume loss. 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 A/P; 86 y/o M with pmh sig for seizures, hypertension, paroxysmal atrial fibrillation, pacemaker placement, GERD, BPH, diabetes mellitus type 2, history of MRSA, admitted with acute Delerium, hallucinations. CT head negative. Question if this is related to Percocet. No obvious source of infection. Patient admitted to medicine. Will obtain psychiatry and neurology consults. We'll also obtain EEG to rule out any worsening of seizure disorder. Please avoid any delirium triggers including any benzos, narcotics, constipation. We' ll obtain EKG to look for are daily seen to address patient did receive haldol in the emergency room because of agitation. Please confirm home meds. DVt px; Pt on coumdin, will dose per home dosing and hceck INR in am. Full code.
[2017-08-23 14:05] VITALS: BP 140/58
--- NOTE | 2017-08-23 16:59 | RADIOLOGY REPORT ---
EXAMINATION: XR PORTABLE CHEST CLINICAL INFORMATION: Hallucinations, altered mentation. COMPARISON: 05/15/2017 TECHNIQUE: Portable frontal view of the chest was obtained. FINDINGS: Low lung volumes. Stable mild enlargement of the cardiomediastinal silhouette. There is a dual-lead cardiac pacemaker. No consolidation, pleural effusion or pneumothorax. Degenerative changes in the left shoulder with findings as above osteochondral left ptosis. IMPRESSION: No acute cardiopulmonary process.
--- NOTE | 2017-08-23 18:31 | Cons- Neurology ---
General Information and HPI Consulting Request Date of Consult: 08/23/17 Requested By: Bjorn MADDOX,Yohana Reason for Consult: Altered mental status and history of seizures Source of Information: patient (EMR) Exam Limitations: unable to give history, confusion History of Present Illness: 86-year-old man presented with diffuse bodily aches and pains, report of auditory and visual hallucinations, and anxiety. He was said to be markedly agitated and confused in the ED. He received multiple doses of haloperidol and benzodiazepines. He remains in restraints and on one-to-one supervision. He was seen by our service back in June 2015 after a nocturnal spell of undetermined etiology, sleep disorder versus nocturnal seizure. He followed up with me once as an outpatient and saw Len Vuong MD for a sleep medicine consultation. However according to his notes the patient declined polysomnography, citing financial reasons. In September 2015 he was readmitted after a witnessed convulsion seen by his son which occurred while he was in bed and which included tongue biting. At that point given the compelling evidence for epilepsy he was placed on Keppra. Review of our office records shows that he has not followed up in our office and compliance with antiepileptic medication is unknown at this time. Currently he is agitated and confused and unable to provide any history. His son indicated to staff that at baseline he is cognitively intact. Allergies/Medications Allergies: Coded Allergies: NO KNOWN ALLERGIES (NONE 08/23/17) Home Med List: Albuterol Sulfate (Proventil Hfa) 90 MCG HFA.AER.AD 2 PUF INH Q4 PRN shortness of breath Allopurinol 300 MG TABLET 1 TAB PO DAILY GOUT (Reported) Aspirin (Ecotrin*) 81 MG TABLET. 1 TAB PO DAILY HEART HEALTH (Reported) Diltiazem HCl (Cardizem Cd) 360 MG CAP.ER.24H 1 CAP PO DAILY HBP (Reported) Furosemide (Lasix) 20 MG TABLET 1 TAB PO DAILY WATER RETENTION (Reported) Levetiracetam (Keppra) 500 MG TABLET 500 MG PO BID Seizure Metoprolol Succinate 200 MG TAB.ER.24H 1 TAB PO 8AM HIGH BLOOD PRESSURE ( Reported) Omeprazole 40 MG CAPSULE.DR 1 CAP PO DAILY GERD (Reported) Oxycodone HCl/Acetaminophen (Oxycodone-Acetaminophen 5-325) 5 MG-325 MG TABLET 1 TAB PO DAILY PRN PAIN (Reported) Potassium Chloride 20 MEQ TAB.ER.PRT 1 TAB PO DAILY SUPPLEMENT (Reported) Simvastatin (Simvastatin*) 20 MG TABLET 1 TAB PO QPM CHOLESTEROL (Reported) Warfarin Sodium (Coumadin) 1 MG TABLET 1 TAB PO DAILY BLOOD THINNER (Reported ) As part of 7MG dosing on Tuesdays and Wednesdays Warfarin Sodium (Coumadin) 6 MG TABLET 1 TAB PO SEE ADMIN CRITERIA BLOOD THINNER (Reported) Pt takes 7MG on Tuesdays and Wednesdays and Takes 6MG rest of the days of the week. Current Medications: Current Medications Sig/Pablo Start time Last Medication Dose Route Stop Time Status Admin Acetaminophen 650 MG Q6P PRN 08/23 1600 AC PO Acetaminophen 1,000 MG Q6P PRN 08/23 1600 AC IV Albuterol Sulfate 2 PUF Q4 PRN 08/22 0715 AC INH Allopurinol 300 MG DAILY 08/22 09 AC 08/23 PO 0829 Aspirin Buffered 81 MG DAILY 08/23 1600 AC PO Aspirin Buffered 81 MG DAILY 08/22 09 AC 08/23 PO 0829 Atorvastatin Calcium 10 MG 1700 08/23 1700 CAN PO Dextrose/Sodium 1,000 ML Q13H 08/23 1430 DC Chloride IV Dextrose/Water 1,000 ML .Q2H 08/23 0830 DC 08/23 IV 08/23 1029 0829 Dextrose/Water 1,000 ML .Q2H 08/23 0815 DC IV 08/23 1014 Diltiazem HCl 360 MG DAILY 08/24 09 AC PO Diltiazem HCl 180 MG DAILY 08/22 09 DC 08/23 PO 0829 Furosemide 20 MG DAILY 08/24 09 AC PO Haloperidol 2 MG ONCE ONE 08/23 1999 DC 08/22 IM 08/22 Haloperidol 0 .STK-MED ONE 08/22 1956 DC .ROUTE Heparin Sodium 5,000 UNIT Q8 08/23 2200 CAN (Porcine) SC Levetiracetam 500 MG BID 08/22 899 AC 08/23 PO 0829 Lorazepam 0.5 MG ONCE ONE 08/23 1999 DC 08/22 IM 08/22 Lorazepam 0 .STK-MED ONE 08/22 1957 DC .ROUTE Metoprolol Succinate 200 MG DAILY 08/22 09 AC 08/23 PO 0829 Olanzapine 5 MG ONCE ONE 08/23 1510 DC 08/23 IM 08/23 1511 1805 Omeprazole 40 MG DAILY AC 08/24 0700 AC PO Warfarin Sodium 7.5 MG COUMADIN 1700 ONE 08/23 1700 DC 08/23 PO 08/23 1701 1721 Review of Systems Review of Systems: Unobtainable Past History Travel History Traveled to [place] past 21 day No Medical History Neurological: SEIZURES EENT: NONE Cardiovascular: hyperlipidemia, HYPERTENSION paroxysmal atrial fibrillation PACEMAKER LEFT CHEST Respiratory: NONE Gastrointestinal: GERD Hepatic: NONE Renal: benign prost hyperplasia Musculoskeletal: gout, osteoarthritis Psychiatric: NONE Endocrine: diabetes (type 2) Blood Disorders: NONE 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 Home Who Do You Live With? child Services at Home: None Primary Language: Danish Smoking Status: Former Smoker ETOH Use: denies use Illicit Drug Use: denies illicit drug use Functional Ability ADLs Independent: dressing, eating, toileting, bathing. Ambulation: independent IADLs Needs Assist: shopping, housework, finances, food prep, telephone, transportation, medication admin. Exam & Diagnostic Data Vital Signs and I&O Vital Signs Date Time Temp Pulse Resp B/P B/P Pulse O2 O2 Flow FiO2 Mean Ox Delivery Rate 08/23 1405 98.1 63 18 140/58 94 Room Air 08/23 1103 96.2 65 18 156/72 98 08/23 0855 98.2 70 20 146/80 95 Room Air 08/23 0829 97.8 67 18 144/81 08/23 0649 97.8 67 18 144/81 95 Room Air 08/23 0318 96.1 66 18 152/80 94 Room Air 08/22 2236 84 18 148/68 97 Room Air 08/22 2015 72 18 170/79 97 Room Air Intake & Output 08/23 1600 08/23 0800 08/23 0000 Intake Total 1000 240 Output Total 400 Balance 600 240 Intake, IV 1000 Intake, Oral 240 Output, Urine 400 Patient 182 lb Weight Physical Exam: Awake alert restless in bed In restraints On one-to-one supervision Head normocephalic atraumatic Neck supple Heart tachycardic rate regular rhythm Extremities without clubbing cyanosis or edema Neurologic exam Awake alert oriented to person, year, and month, not to place or time. Perseverating on the topic of cars Apparent visual hallucinations as the patient was stating "watch out behind you " Full extraocular motility Pupils equal round and reactive to light Not cooperative for funduscopic exam Strength 5 out of 5 throughout based on observation of his movements Last 48 Hours of Lab Results: Laboratory Tests 08/23 08/23 0814 0808 Chemistry Sodium (137 - 145 mmol/L) 141 Potassium (3.5 - 5.1 mmol/L) 5.2 H Chloride (98 - 107 mmol/L) 103 Carbon Dioxide (22 - 30 mmol/L) 24 Anion Gap (5 - 16) 14 BUN (9 - 20 mg/dL) 17 Creatinine (0.7 - 1.2 mg/dL) 0.9 Estimated GFR (>60 ml/min) > 60 BUN/Creatinine Ratio (7 - 25 %) 18.9 Glucose (65 - 99 mg/dL) 117 H Hemoglobin A1c (4.2 - 5.8 %) Pending Calcium (8.4 - 10.2 mg/dL) 9.0 Total Bilirubin (0.2 - 1.3 mg/dL) 1.5 H Direct Bilirubin (< 0.4 mg/dL) 0.6 H AST (17 - 59 U/L) 50 ALT (21 - 72 U/L) 32 Alkaline Phosphatase (< 127 U/L) 85 Total Protein (6.3 - 8.2 g/dL) 7.1 Albumin (3.5 - 5.0 g/dL) 4.0 Vitamin B12 (239 - 931 pg/mL) 808 TSH (0.270 - 4.200 uIU/mL) 4.810 H Free T4 (0.85 - 1.93 ng/dL) 1.76 Hematology CBC w Diff NO MAN DIFF REQ WBC (4.8 - 10.8 /CUMM) 6.8 RBC (4.70 - 6.10 /CUMM) 4.67 L Hgb (14.0 - 18.0 G/DL) 14.8 Hct (42 - 52 %) 43.8 MCV (80.0 - 94.0 FL) 93.7 MCH (27.0 - 31.0 PG) 31.6 H MCHC (33.0 - 37.0 G/DL) 33.8 RDW (11.5 - 14.5 %) 15.3 H Plt Count (130 - 400 /CUMM) 144 MPV (7.4 - 10.4 FL) 9.6 Gran % (42.2 - 75.2 %) 73.9 Lymphocytes % (20.5 - 51.1 %) 10.0 L Monocytes % (1.7 - 9.3 %) 12.6 H Eosinophils % (0 - 5 %) 3.2 Basophils % (0.0 - 2.0 %) 0.3 Absolute Granulocytes (1.4 - 6.5 /CUMM) 5.0 Absolute Lymphocytes (1.2 - 3.4 /CUMM) 0.7 L Absolute Monocytes (0.10 - 0.60 /CUMM) 0.9 H Absolute Eosinophils (0.0 - 0.7 /CUMM) 0.2 Absolute Basophils (0.0 - 0.2 /CUMM) 0 Urines Urine Color (YEL,AMB,STR) YEL Urine Clarity (CLEAR) CLEAR Urine pH (5.0 - 8.0) 6.0 Ur Specific [place] (1.001 - 1.035) 1.025 Urine Protein (NEG,<30 MG/DL) 30 H Urine Ketones (NEG) 15 H Urine Nitrite (NEG) NEG Urine Bilirubin (NEG) NEG@ICTO Urine Urobilinogen (0.1 - 1.0 EU/dl) 0.2 Ur Leukocyte Esterase (NEG) NEG Ur Microscopic SEDIMENT EXAMINED Urine RBC (0 - 5 /HPF) 1-3 Ur Epithelial Cells (NONE,FEW) RARE Urine Hemoglobin (NEG) MOD H Urine Glucose (N MG/DL) NEG 08/22 08/22 0310 0310 Chemistry Sodium (137 - 145 mmol/L) 137 Potassium (3.5 - 5.1 mmol/L) 4.4 Chloride (98 - 107 mmol/L) 103 Carbon Dioxide (22 - 30 mmol/L) 22 Anion Gap (5 - 16) 12 BUN (9 - 20 mg/dL) 21 H Creatinine (0.7 - 1.2 mg/dL) 1.0 Estimated GFR (>60 ml/min) > 60 BUN/Creatinine Ratio (7 - 25 %) 21.0 Glucose (65 - 99 mg/dL) 122 H Calcium (8.4 - 10.2 mg/dL) 8.7 Total Bilirubin (0.2 - 1.3 mg/dL) 1.4 H Direct Bilirubin (< 0.4 mg/dL) 0.5 H AST (17 - 59 U/L) 26 ALT (21 - 72 U/L) 44 Alkaline Phosphatase (< 127 U/L) 90 Creatine Kinase (55 - 170 U/L) 143 Troponin I (<0.11 ng/ml) < 0.01 Total Protein (6.3 - 8.2 g/dL) 6.7 Albumin (3.5 - 5.0 g/dL) 4.1 Amylase (30 - 110 U/L) 62 Lipase (23 - 300 U/L) 132 Prolactin (3.7 - 17.9 ng/mL) 11.1 Coagulation PT (9.4 - 12.5 SEC) 17.3 H INR (0.90 - 1.17) 1.58 H APTT (25 - 37 SEC) 29 Hematology CBC w Diff NO MAN DIFF REQ WBC (4.8 - 10.8 /CUMM) 6.1 RBC (4.70 - 6.10 /CUMM) 4.21 L Hgb (14.0 - 18.0 G/DL) 13.2 L Hct (42 - 52 %) 40.1 L MCV (80.0 - 94.0 FL) 95.2 H MCH (27.0 - 31.0 PG) 31.4 H MCHC (33.0 - 37.0 G/DL) 33.0 RDW (11.5 - 14.5 %) 15.5 H Plt Count (130 - 400 /CUMM) 130 MPV (7.4 - 10.4 FL) 9.7 Gran % (42.2 - 75.2 %) 73.1 Lymphocytes % (20.5 - 51.1 %) 11.3 L Monocytes % (1.7 - 9.3 %) 11.4 H Eosinophils % (0 - 5 %) 3.8 Basophils % (0.0 - 2.0 %) 0.4 Absolute Granulocytes (1.4 - 6.5 /CUMM) 4.5 Absolute Lymphocytes (1.2 - 3.4 /CUMM) 0.7 L Absolute Monocytes (0.10 - 0.60 /CUMM) 0.7 H Absolute Eosinophils (0.0 - 0.7 /CUMM) 0.2 Absolute Basophils (0.0 - 0.2 /CUMM) 0 Toxicology Serum Alcohol (<10 MG/DL) < 10.0 08/22 0303 Toxicology Urine Opiates Screen (>2000 NG/ML) 252 Methadone Screen (>300 NG/ML) 60 Barbiturate Screen (>200 NG/ML) < 60 Ur Phencyclidine Scrn (>25 NG/ML) < 6.00 Amphetamines Screen (>1000 NG/ML) < 100 U Benzodiazepines Scrn (>200 NG/ML) < 85 Urine Cocaine Screen (>300 NG/ML) < 50 Urine Cannabis Screen (>50 NG/ML) < 5.00 Urines Urine Color (YEL,AMB,STR) YEL Urine Clarity (CLEAR) CLEAR Urine pH (5.0 - 8.0) 6.0 Ur Specific [place] (1.001 - 1.035) 1.025 Urine Protein (NEG,<30 MG/DL) TRACE H Urine Ketones (NEG) NEG Urine Nitrite (NEG) NEG Urine Bilirubin (NEG) NEG Urine Urobilinogen (0.1 - 1.0 EU/dl) 1.0 Ur Leukocyte Esterase (NEG) NEG Ur Microscopic SEDIMENT EXAMINED Urine RBC (0 - 5 /HPF) 5-10 H Urine WBC (0 - 2 /HPF) 1-3 H Ur Epithelial Cells (NONE,FEW) FEW Urine Bacteria (NEG/NONE) PACKD H Urine Hemoglobin (NEG) SMALL H Urine Glucose (N MG/DL) NEG Imaging/Other Studies: PATIENT: MECHELLE SPAIN PRESENT AGE: 86 PATIENT ACCOUNT NO: [id number] : 32 LOCATION: [facility] ORDERING PHYSICIAN: Aubrey Rivera MD SERVICE DATE: 08/23/17 EXAM TYPE: CAT - CT HEAD WO IV CONTRAST EXAMINATION: CT HEAD WITHOUT CONTRAST CLINICAL INFORMATION: Altered mental status. COMPARISON: Head CT 08/22/2017. TECHNIQUE: Contiguous axial imaging was performed from the skull base to vertex without intravenous administration of contrast. DLP: 617 mGy-cm. FINDINGS: There is no intracranial hemorrhage, large infarction, or parenchymal mass lesion. There is no extra-axial collection. There is mild scattered hypoattenuation in the bilateral cerebral white matter, which is nonspecific but likely reflects small vessel disease. There is chronic lacunar infarction within the right basal ganglia and in the left cerebellum. There is a subcentimeter focus of mineralization along the right parietal convexity which could represent a densely mineralized meningioma (series 4 image 15). There is mild diffuse brain parenchymal volume loss with prominence of the ventricles and sulci. The ventricles are stable in size without evidence of hydrocephalus. The visualized paranasal sinuses and mastoid air cells are clear. IMPRESSION: - No acute intracranial abnormality. - Redemonstration of chronic changes including right basal ganglia and left cerebellum lacunar infarct, mild small vessel ischemia, and mild diffuse brain parenchymal volume loss. 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 DICTATED BY: Jayashree Lewis MD DATE/TIME DICTATED:08/23/17923 RETOUCHER PHOTOENGRAVING:LILI DATE/TIME TRANSCRIBED:08/23/17923 CONFIDENTIAL, DO NOT COPY WITHOUT APPROPRIATE AUTHORIZATION. <Electronically signed in Other Vendor System> SIGNED BY: Jayashree Lewis MD 08/23/17 0905 Assessment/Plan Assessment: Prolonged confusional state, possibly post ictal History of at least 2 prior nocturnal seizures Placed on Keppra after the second event which included tongue biting and limb shaking Unknown AED medication compliance and patient lost to neurologic follow-up History of carotid atherosclerosis, cerebral atherosclerosis, atrial fibrillation on warfarin, pacemaker, diabetes mellitus, hypertension, hyperlipidemia Recommendations: Start IV Depacon 500 mg twice a day for both antiepileptic effects and mood stabilizing effects Continue Keppra 500 mg twice a day for now Obtaining an EEG We'll follow Consult Acknowledgment - Thank you for your consult request.
[2017-08-23 22:38] VITALS: BP 150/90
[2017-08-24 06:20] VITALS: BP 144/76
[2017-08-24 08:06] LABS: ABSOLUTE BASOPHIL COUNT 0 /CUMM (0.0-0.2); ABSOLUTE EOSINOPHIL COUNT 0.3 /CUMM (0.0-0.7); ABSOLUTE GRANULOCYTE CT 5.6 /CUMM (1.4-6.5); ABSOLUTE LYMPH COUNT 0.9 /CUMM (1.2-3.4); BASOPHIL % 0.4 % (0.0-2.0); EOSINOPHIL % 3.3 % (0-5); GRANULOCYTE % 71.2 % (42.2-75.2); HEMATOCRIT 45.3 % (42-52); MEAN CORPUSCULAR HGB 30.9 PG (27.0-31.0); MEAN CORPUSCULAR HGB CONC 32.3 G/DL (33.0-37.0); MEAN CORPUSCULAR VOLUME 95.6 FL (80.0-94.0); MEAN PLATELET VOLUME 9.7 FL (7.4-10.4); PLATELET COUNT 172 /CUMM (130-400); RBC DISTRIBUTION WIDTH 15.4 % (11.5-14.5); RED BLOOD CELL CT 4.74 /CUMM (4.70-6.10); WHITE BLOOD CELL COUNT 7.8 /CUMM (4.8-10.8)
[2017-08-24 08:27] LABS: PT 26.4 SEC (9.4-12.5)
--- NOTE | 2017-08-24 08:30 | PN- Housestaff ---
Subjective Follow-up For: AMS Subjective: Patient seen and examined. He is disoriented, agitated, aggressive and confused. He is unable to provide complaints. Is in a net bed. Examination is limited at this time due to patient's conditon. Review of Systems Constitutional: Reports: no symptoms. Objective Last 24 Hrs of Vital Signs/I&O Vital Signs Date Time Temp Pulse Resp B/P B/P Pulse O2 O2 Flow FiO2 Mean Ox Delivery Rate 08/24 1025 98.2 74 20 144/76 08/24 0620 98.2 74 20 144/76 92 Room Air 08/23 2238 80 20 150/90 92 Room Air Intake & Output 08/24 1600 08/24 0800 08/24 0000 Intake Total 500 Output Total Balance 500 Intake, Oral 500 Physical Exam General Appearance: Moderate Distress, awake, uncooperative, disoriented Skin Temp/Moisture Exam: Warm/Dry Sepsis Skin Exam (color): Normal for Ethnicity Extremities: No Edema Last 24 Hrs of Lab/Jayme Results Last 24 Hrs of Labs/Mics: Laboratory Tests 08/24/17 1015: Ammonia < 9 L 08/24/17 0715: Anion Gap 12, Estimated GFR > 60, BUN/Creatinine Ratio 21.0, PT 26.4 H, INR 2.40 H, CBC w Diff NO MAN DIFF REQ, RBC 4.74, MCV 95.6 H, MCH 30.9, MCHC 32.3 L, RDW 15.4 H, MPV 9.7, Gran % 71.2, Lymphocytes % 11.7 L, Monocytes % 13.4 H , Eosinophils % 3.3, Basophils % 0.4, Absolute Granulocytes 5.6, Absolute Lymphocytes 0.9 L, Absolute Monocytes 1.0 H, Absolute Eosinophils 0.3, Absolute Basophils 0 08/24/17 0600: Levetiracetam Pending Microbiology 08/23 1730 BLOOD: Blood Culture - RES 08/23 171 BLOOD: Blood Culture - RES Assessment/Plan Assessment: 86-year-old male with past medical history significant for seizures, hypertension, paroxysmal atrial fibrillation, pacemaker placement, GERD, BPH, diabetes mellitus type 2, history of MRSA was brought to the ED by family members with concerns of diffuse body aches and auditory/visual hallucinations. Assessment: 1. Altered Mental Status 2. History of Hypertension 3. History of Paroxysmal A.fib on Warfarin 4. History of diabetes 5. History of Seizures Plan: * Unclear cause of his delirium at the moment. No electrolyte abnormalities noted. * Per psych will start Risperidone 0.25mg BID for agitation. * EEG. Though this can obviously not be done today due to patient's condition. * Neurology input appreciated. * Will start him on IV Depacon 500 mg BID. * Continue Keppra 500 mg BID. * Hold Lasix in the context of prerenal azotemia. He is likely dehydrated in the setting of poor oral intake. * Swallow eval - pending. Could not be assessed today. * Insulin SS with Accucheks * Diet: Diabetic * DVT Prophylaxis: On Coumadin * Code: Full Code Problem List: 1. Altered mental status Pain Ratin Pain Location: none Pain Goal: Remain pain free Pain Plan: none Tomorrow's Labs & Rationales: CBC, BEP, INR
--- NOTE | 2017-08-24 09:10 | Cons- Psychiatry ---
Psychiatric Consult Date of Consult: 08/24/17 Reason for Consult: Asked to see this 86-year-old male admitted with increasing delirium of unknown etiology. History of Present Illness: No history available from patient. All notes were reviewed. 86 yo man admitted yesterday with sudden onset of confusion and perceptual abnormality. History of seizures, hypertension, paroxysmal atrial fibrillation, pacemaker placement, GERD, BPH, diabetes mellitus type 2, history of MRSA . Lives with two adult sons. Bib son 08/21 with generalized body aches, agitation and perceptual abnormality. Kept in ED for assessment of fluctuating presentation. Pt became increasingly agitated and required both physical and chemical restraint. At baseline pt reportedly inexpedient. No psych history per notes. Seizure disorder diagnosed 2015, on keppra but lost to neuro follow-up and med adherence unclear though Rx filled for 3 months on 07/25/2017. Question of visual hallucinations April 2017 per notes. Son also told ED staff that py has had disturbed sleep w reverse sleep schedule. The patient's symptoms appear to have increased rapidly over the past few days. At times in the emergency room the patient was reportedly lucid and able to engage in conversation. Allergies: Coded Allergies: NO KNOWN ALLERGIES (NONE 08/23/17) Current Medications: Albuterol Sulfate (Proventil Hfa) 90 MCG HFA.AER.AD 2 PUF INH Q4 PRN shortness of breath Allopurinol 300 MG TABLET 1 TAB PO DAILY GOUT (Reported) Aspirin (Ecotrin*) 81 MG TABLET.DR 1 TAB PO DAILY HEART HEALTH (Reported) Diltiazem HCl (Cardizem Cd) 360 MG CAP.ER.24H 1 CAP PO DAILY HBP (Reported) Furosemide (Lasix) 20 MG TABLET 1 TAB PO DAILY WATER RETENTION (Reported) Levetiracetam (Keppra) 500 MG TABLET 500 MG PO BID Seizure Metoprolol Succinate 200 MG TAB.ER.24H 1 TAB PO 8AM HIGH BLOOD PRESSURE ( Reported) Omeprazole 40 MG CAPSULE.DR 1 CAP PO DAILY GERD (Reported) Oxycodone HCl/Acetaminophen (Oxycodone-Acetaminophen 5-325) 5 MG-325 MG TABLET 1 TAB PO DAILY PRN PAIN (Reported) Potassium Chloride 20 MEQ TAB.ER.PRT 1 TAB PO DAILY SUPPLEMENT (Reported) Simvastatin (Simvastatin*) 20 MG TABLET 1 TAB PO QPM CHOLESTEROL (Reported) Warfarin Sodium (Coumadin) 1 MG TABLET 1 TAB PO DAILY BLOOD THINNER (Reported ) As part of 7MG dosing on Tuesdays and Wednesdays Warfarin Sodium (Coumadin) 6 MG TABLET 1 TAB PO SEE ADMIN CRITERIA BLOOD THINNER (Reported) Pt takes 7MG on Tuesdays and Wednesdays and Takes 6MG rest of the days of the week. 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 All history obtained from review of notes. Assessment/Plan Mental Status Orientation: Confused Affect: Anxious (agitated) Speech: Mumbled Neuro-vegetative: Sexual Interest Increased Mental Status Exam: The patient is an 86-year-old male pain lying in a Soma bed. He was picking at the bed clothes. He was unable to respond to any questions in a coherent fashion. He did not appear to understand questions that were asked of him and was unable to follow simple commands. Eye contact was poor. Speech was mumbling, content almost indecipherable apart from "I cannot tell what is real". The patient was not oriented in any sphere. Insight was absent and judgment impaired. Lab Results: Lab Ammonia < 9 umol/L L 08/24/17 1015 Anion Gap 12 08/24/17 0715 BUN 21 mg/dL H 08/24/17 0715 BUN/Creatinine Ratio 21.0 % 08/24/17 0715 Carbon Dioxide 28 mmol/L 08/24/17 0715 Chloride 103 mmol/L 08/24/17 0715 Creatinine 1.0 mg/dL 08/24/17 0715 Free T4 1.76 ng/dL 08/23/17 0808 Potassium 5.1 mmol/L 08/24/17 0715 Sodium 143 mmol/L 08/24/17 0715 TSH 4.810 uIU/mL H 08/23/17 0808 INR 2.40 H 08/24/17 0715 PT 26.4 SEC H 08/24/17 0715 Hct 45.3 % 08/24/17 0715 Hgb 14.6 G/DL 08/24/17 0715 RBC 4.74 /CUMM 08/24/17 0715 WBC 7.8 /CUMM 08/24/17 0715 Ur Specific [place] 1.025 08/23/17 08 Urine Glucose NEG MG/DL 08/23/17 0814 Urine Hemoglobin MOD H 08/23/17 0814 Urine Ketones 15 H 08/23/17 0814 Urine Nitrite NEG 08/23/17813 Urine Protein 30 MG/DL H 08/23/[address] Brain: FINDINGS: There is no intracranial hemorrhage, large infarction, or parenchymal mass lesion. There is no extra-axial collection. There is mild scattered hypoattenuation in the bilateral cerebral white matter, which is nonspecific but likely reflects small vessel disease. There is chronic lacunar infarction within the right basal ganglia and in the left cerebellum. There is a subcentimeter focus of mineralization along the right parietal convexity which could represent a densely mineralized meningioma (series 4 image 15). There is mild diffuse brain parenchymal volume loss with prominence of the ventricles and sulci. The ventricles are stable in size without evidence of hydrocephalus. The visualized paranasal sinuses and mastoid air cells are clear. IMPRESSION: - No acute intracranial abnormality. - Redemonstration of chronic changes including right basal ganglia and left cerebellum lacunar infarct, mild small vessel ischemia, and mild diffuse brain parenchymal volume loss. 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 Diffential Diagnosis: 1. Delirium of unknown etiology 2. Seizure disorder 3. Although parenchymal volume loss on CT is mild, underlying Lewy body dementia may be a consideration Provisional Treatment Plan: - Workup for delirium as per medical team - Suggest keeping benzodiazepines to a minimum in order to avoid worsening confusion. - Agitation can be managed with low-dose antipsychotics. Suggest starting with 0.25 mg of risperidone a.m. and at bedtime. Thank you for consulting us on this patient. Psychiatry will follow.
--- NOTE | 2017-08-24 13:03 | PN- Att Addend ---
Attending Addendum Attending Brief Note Patient seen and examined, he was very agitated and had to be put in in a net that. He remains confused. Vital Signs Date Time Temp Pulse Resp B/P B/P Pulse O2 O2 Flow FiO2 Mean Ox Delivery Rate 08/24 1025 98.2 74 20 144/76 08/24 0620 98.2 74 20 144/76 92 Room Air 08/23 2238 80 20 150/90 92 Room Air 08/23 1405 98.1 63 18 140/58 94 Room Air on exam; awake, nad. Confused, in net bed. cv; s1,s2, rrr resp; clear abd; soft, nt, bs+ ext; no edema. Laboratory Tests 08/24 08/24 08/24 1015 0715 0600 Chemistry Sodium (137 - 145 mmol/L) 143 Potassium (3.5 - 5.1 mmol/L) 5.1 Chloride (98 - 107 mmol/L) 103 Carbon Dioxide (22 - 30 mmol/L) 28 Anion Gap (5 - 16) 12 BUN (9 - 20 mg/dL) 21 H Creatinine (0.7 - 1.2 mg/dL) 1.0 Estimated GFR (>60 ml/min) > 60 BUN/Creatinine Ratio (7 - 25 %) 21.0 Ammonia (9 - 30 umol/L) < 9 L Coagulation PT (9.4 - 12.5 SEC) 26.4 H INR (0.90 - 1.17) 2.40 H Hematology CBC w Diff NO MAN DIFF REQ WBC (4.8 - 10.8 /CUMM) 7.8 RBC (4.70 - 6.10 /CUMM) 4.74 Hgb (14.0 - 18.0 G/DL) 14.6 Hct (42 - 52 %) 45.3 MCV (80.0 - 94.0 FL) 95.6 H MCH (27.0 - 31.0 PG) 30.9 MCHC (33.0 - 37.0 G/DL) 32.3 L RDW (11.5 - 14.5 %) 15.4 H Plt Count (130 - 400 /CUMM) 172 MPV (7.4 - 10.4 FL) 9.7 Gran % (42.2 - 75.2 %) 71.2 Lymphocytes % (20.5 - 51.1 %) 11.7 L Monocytes % (1.7 - 9.3 %) 13.4 H Eosinophils % (0 - 5 %) 3.3 Basophils % (0.0 - 2.0 %) 0.4 Absolute Granulocytes (1.4 - 6.5 /CUMM) 5.6 Absolute Lymphocytes (1.2 - 3.4 /CUMM) 0.9 L Absolute Monocytes (0.10 - 0.60 /CUMM) 1.0 H Absolute Eosinophils (0.0 - 0.7 /CUMM) 0.3 Absolute Basophils (0.0 - 0.2 /CUMM) 0 Toxicology Levetiracetam Pending A/P; 86 y/o M with pmh sig for seizures, hypertension, paroxysmal atrial fibrillation, pacemaker placement, GERD, BPH, diabetes mellitus type 2, history of MRSA, admitted with acute delirium, hallucinations. The etiology of delirium remains unclear. No obvious source of infection. Patient was seen by neurology and Depacon was added in addition to Keppra. Patient to get EEG. Appreciate psych input. Will add risperidone. Please hold Lasix and encourage by mouth fluids. He does have increasing BUN today. Noted jumping INR today. We will dose Coumadin at 5 mg today and recheck INR in the morning. Continue other current management. Discussed with patient's son at bedside.
[2017-08-24 14:43] VITALS: BP 140/90
[2017-08-24 22:21] VITALS: BP 130/60
[2017-08-25 06:46] VITALS: BP 126/78
--- NOTE | 2017-08-25 07:14 | PN- Housestaff ---
Aixa MADDOX,[facility] 08/25/17 0713: Subjective Follow-up For: AMS Subjective: Patient seen and examined. Is awake, cooperative but still disoriented and confused. Does not offers any complaints. Review of Systems Constitutional: Reports: no symptoms. Objective Last 24 Hrs of Vital Signs/I&O Vital Signs Date Time Temp Pulse Resp B/P B/P Pulse O2 O2 Flow FiO2 Mean Ox Delivery Rate 08/25 0646 97.7 59 18 126/78 94 Room Air 08/24 2221 96.5 60 20 130/60 95 Room Air 08/24 1443 98.5 87 20 140/90 93 Room Air 08/24 1025 98.2 74 20 144/76 Intake & Output 08/25 0800 08/25 0000 08/24 1600 Intake Total 120 680 Output Total Balance 120 680 Intake, IV 80 Intake, Oral 120 600 Physical Exam General Appearance: Alert, Cooperative, Mild Distress, disoriented Skin: No Rashes, No Breakdown Skin Temp/Moisture Exam: Warm/Dry Sepsis Skin Exam (color): Normal for Ethnicity HEENT: Atraumatic Cardiovascular: Normal S1, Normal S2, No Murmurs Lungs: Clear to Auscultation, Normal Air Movement Abdomen: Soft, No Tenderness Neurological: Normal Speech Extremities: No Edema Last 24 Hrs of Lab/Jayme Results Last 24 Hrs of Labs/Mics: Laboratory Tests 08/25/17 0730: Sodium Pending, Potassium Pending, Chloride Pending, Carbon Dioxide Pending, Anion Gap Pending, BUN Pending, Creatinine Pending, BUN/Creatinine Ratio Pending , PT Pending, INR Pending, CBC w Diff NO MAN DIFF REQ, RBC 4.75, MCV 94.9 H, MCH 31.1 H, MCHC 32.8 L, RDW 15.5 H, MPV 9.3, Gran % 71.5, Lymphocytes % 14.0 L, Monocytes % 10.0 H, Eosinophils % 4.2, Basophils % 0.3, Absolute Granulocytes 5.3, Absolute Lymphocytes 1.0 L, Absolute Monocytes 0.7 H, Absolute Eosinophils 0.3, Absolute Basophils 0 08/24/17 1015: Ammonia < 9 L Assessment/Plan Assessment: 86-year-old male with past medical history significant for seizures, hypertension, paroxysmal atrial fibrillation, pacemaker placement, GERD, BPH, diabetes mellitus type 2, history of MRSA was brought to the ED by family members with concerns of diffuse body aches and auditory/visual hallucinations. Assessment: 1. Altered Mental Status 2. History of Hypertension 3. History of Paroxysmal A.fib on Warfarin 4. History of diabetes 5. History of Seizures Plan: * Unclear cause of his delirium. No electrolyte abnormalities noted. * Continue Risperidone 0.25mg BID for agitation. He is noticed to be improved today. * EEG today - pending. * Switch to PO depakote today. * Continue Keppra 500 mg BID. * Hold Lasix in the context of prerenal azotemia. He is likely dehydrated in the setting of poor oral intake. * Hold Coumadin today for supratherapeutic INR * Insulin SS with Accucheks * Diet: Diabetic - mechanical ground and nectar * DVT Prophylaxis: On Coumadin. * Code: Full Code Problem List: 1. Altered mental status Pain Ratin Pain Location: none Pain Goal: Remain pain free Pain Plan: none Tomorrow's Labs & Rationales: BEP, INR Bjorn MADDOX,[facility] 08/25/17 1412: Attending MD Review Statement Attending Statement Attending MD Statement: examined this patient, discuss w/resident/PA/BIOMEDICAL SERVICE ENGINEER, agreed w/resident/PA/BIOMEDICAL SERVICE ENGINEER, reviewed EMR data (avail), discussed with nursing, discussed with case mgmt, reviewed images, amended to note Attending Assessment/Plan: Patient seen and examined, now net bed open. Less agitated. Vital Signs Date Time Temp Pulse Resp B/P B/P Pulse O2 O2 Flow FiO2 Mean Ox Delivery Rate 08/25 0730 97.7 59 18 126/78 08/25 0646 97.7 59 18 126/78 94 Room Air 08/24 2221 96.5 60 20 130/60 95 Room Air 08/24 1443 98.5 87 20 140/90 93 Room Air on exam: awake, nad. cv; s1, s2, rrr resp; clear abd: soft, nt, bs+ ext: no edema Laboratory Tests 08/25 0730 Chemistry Sodium (137 - 145 mmol/L) 141 Potassium (3.5 - 5.1 mmol/L) 4.8 Chloride (98 - 107 mmol/L) 103 Carbon Dioxide (22 - 30 mmol/L) 24 Anion Gap (5 - 16) 14 BUN (9 - 20 mg/dL) 31 H Creatinine (0.7 - 1.2 mg/dL) 1.2 Estimated GFR (>60 ml/min) 58 L BUN/Creatinine Ratio (7 - 25 %) 25.8 H Coagulation PT (9.4 - 12.5 SEC) 42.7 *H INR (0.90 - 1.17) 3.86 H Hematology CBC w Diff NO MAN DIFF REQ WBC (4.8 - 10.8 /CUMM) 7.4 RBC (4.70 - 6.10 /CUMM) 4.75 Hgb (14.0 - 18.0 G/DL) 14.8 Hct (42 - 52 %) 45.0 MCV (80.0 - 94.0 FL) 94.9 H MCH (27.0 - 31.0 PG) 31.1 H MCHC (33.0 - 37.0 G/DL) 32.8 L RDW (11.5 - 14.5 %) 15.5 H Plt Count (130 - 400 /CUMM) 165 MPV (7.4 - 10.4 FL) 9.3 Gran % (42.2 - 75.2 %) 71.5 Lymphocytes % (20.5 - 51.1 %) 14.0 L Monocytes % (1.7 - 9.3 %) 10.0 H Eosinophils % (0 - 5 %) 4.2 Basophils % (0.0 - 2.0 %) 0.3 Absolute Granulocytes (1.4 - 6.5 /CUMM) 5.3 Absolute Lymphocytes (1.2 - 3.4 /CUMM) 1.0 L Absolute Monocytes (0.10 - 0.60 /CUMM) 0.7 H Absolute Eosinophils (0.0 - 0.7 /CUMM) 0.3 Absolute Basophils (0.0 - 0.2 /CUMM) 0 A/P: 86 y/o M with pmh sig for seizures, hypertension, paroxysmal atrial fibrillation, pacemaker placement, GERD, BPH, diabetes mellitus type 2, history of MRSA, admitted with acute delirium, hallucinations. Patient slightly better today. Less agitated. Appreciate psychiatry and neurology input. Continue Depakote and check the levels as recommended by neurology. We'll switch him to oral. Patient on Risperdal as needed. We'll try to discontinue the net bed. Continue sitter for now. Will continue gentle IV hydration. INR supratherapeutic today. Please hold Coumadin. Discussed with patient's family at bedside.
[2017-08-25 08:08] LABS: ABSOLUTE BASOPHIL COUNT 0 /CUMM (0.0-0.2); ABSOLUTE EOSINOPHIL COUNT 0.3 /CUMM (0.0-0.7); ABSOLUTE GRANULOCYTE CT 5.3 /CUMM (1.4-6.5); ABSOLUTE MONOCYTE COUNT 0.7 /CUMM (0.10-0.60); BASOPHIL % 0.3 % (0.0-2.0); EOSINOPHIL % 4.2 % (0-5); GRANULOCYTE % 71.5 % (42.2-75.2); MEAN CORPUSCULAR HGB 31.1 PG (27.0-31.0); MEAN CORPUSCULAR HGB CONC 32.8 G/DL (33.0-37.0); MEAN CORPUSCULAR VOLUME 94.9 FL (80.0-94.0); MEAN PLATELET VOLUME 9.3 FL (7.4-10.4); PLATELET COUNT 165 /CUMM (130-400); RBC DISTRIBUTION WIDTH 15.5 % (11.5-14.5); RED BLOOD CELL CT 4.75 /CUMM (4.70-6.10); WHITE BLOOD CELL COUNT 7.4 /CUMM (4.8-10.8)
[2017-08-25 08:47] LABS: PT 42.7 SEC (9.4-12.5)
--- NOTE | 2017-08-25 10:54 | PN- Neurology ---
Subjective Subjective: He is now in a Soma bed, which is currently unzipped one side while caretakers are present. He is calm but somnolent. One of his sons is visiting. His son states that his father manages his own medical care, and was driving around time and shopping on the day his symptoms developed. His son does not know whether or not he was adherent to taking Keppra. He believes that [facility] may be [facility] versus through his primary Javy Benoit MD. Review of Systems: Unobtainable from the patient. He is reportedly now intermittently able to feed himself. He reportedly slept poorly last night. He remains on one-to-one supervision. 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 after which he developed right-sided facial weakness and right eyelid drooping) Right ptosis evident Right facial synkinesis evident Left-sided facial movements normal Full extraocular motility Oriented to person, year, and month, but not to place Speech appears to be fluent but is hypophonic Inattentive No focal motor deficit Current Medications: Current Medications Sig/Pablo Start time Last Medication Dose Route Stop Time Status Admin Acetaminophen 650 MG Q6P PRN 08/23 1600 AC PO Acetaminophen 1,000 MG Q6P PRN 08/23 1600 AC IV Albuterol Sulfate 2 PUF Q4 PRN 08/22 0715 AC INH Allopurinol 300 MG DAILY 08/22 0900 AC 08/25 PO 0935 Aspirin Buffered 81 MG DAILY 08/23 1600 AC 08/25 PO 0731 Diltiazem HCl 360 MG DAILY 08/24 0900 AC 08/25 PO 0731 Furosemide 20 MG DAILY 08/24 0900 DC 08/24 PO 1025 Levetiracetam 500 MG BID 08/22 0900 AC 08/25 PO 0730 Metoprolol Succinate 200 MG DAILY 08/22 0900 AC 08/25 PO 0730 Omeprazole 40 MG DAILY AC 08/24 0700 AC 08/25 PO 0632 Risperidone 0.25 MG BID 08/24 1413 AC 08/25 PO 0730 Valproate Sodium 500 MG Q12 08/24 0900 AC 08/25 Sodium Chloride 50 ML IV 0935 Warfarin Sodium 5 MG COUMADIN 1700 ONE 08/24 1700 DC 08/24 PO 08/24 1701 1629 Assessment/Plan Assessment: Suspect unwitnessed seizure with post ictal encephalopathy as the cause for his abrupt onset change in mental status. He is showing gradual improvement over time. He is tolerating Depakote. Plan: EEG, which he will hopefully tolerate soon Continue Depakote 500 mg twice a day. Okay to switch to by mouth if he will swallow pills. Check a trough Depakote level tomorrow morning. Consider eventual transition to Depakote monotherapy. Jasen Handley MD covering neurology service as of August 26
--- NOTE | 2017-08-25 14:27 | PN- Psychiatry ---
Assessment/Plan Impression: Ongoing delirium with some improvement evident. According to patient's family and nursing staff, the patient was capable of participating fully in a conversation earlier today. Continues to wax and wane. Suggestion: - Continue risperidone 0.25 mg p.o. a.m. and at bedtime - Question whether Depakote can be discontinued as the patient is on levetiracetam and has no history of mood disorder - Ongoing workup of delirium per medical team Subjective Subjective: No information available from patient who was agitated and disoriented at the time of assessment although according to staff he had been clear earlier today. Review of Systems: The patient remains in a Soma bed. Consciousness level fluctuates as does orientation. No information available from patient. Review of systems well documented elsewhere.
[2017-08-25 14:59] VITALS: BP 125/70
--- NOTE | 2017-08-25 15:51 | Discharge Summary ---
Visit Information Visit Dates Admission Date: 08/23/17 Discharge Date: 08/28/17 Hospital Course Course Attending Physician: Yohana Milan MD Primary Care Physician: Kaycee MADDOX,[facility] Course: 86-year-old male with past medical history significant for seizures on Keppra, hypertension, paroxysmal atrial fibrillation, pacemaker placement, GERD, BPH, diabetes mellitus type 2, history of MRSA presented to [facility] with whole-body pains and auditory/visual hallucinations. He was initially kept in ED for observation but quickly became combative and altered requiring both chemical and physical restraints. He was admitted to floor for further eval of rapid deterioration of his mental status. DDX included delirium, Seizure disorder and underlying Lewy body dementia may be a consideration. Psych and neuro were both consulted. A complete work up including B12/FOLATE/Vit D/ CT HEAD revealed no acute etiology. When speaking with our psych provider there is concern for Lewy body dementia and pt would benefit from further outpt work up. Fortunately, the patient's delirium resolved over the course of his hospital stay. He was evaluated by physical therapy and recommended home/self care. He was discharged in stable disposition. * Started on Risperdal which can be continued on a prn basis at 0.25mg bid as needed for a week. * Continue Keppra * Continue Cardizem * Continue Toprol * Outpt psych work up * He should follow up with his neurologist within one week of discharge. Allergies: Coded Allergies: NO KNOWN ALLERGIES (NONE 08/23/17) Significant Procedures: SERVICE DATE: 08/25/17 EXAM TYPE: RAD - XRY-PORTABLE CHEST XRAY FINDINGS: Pacemaker lead in right atrium and right ventricle. No change position since prior study. Cardiac and mediastinal contours are normal. There are vascular wall calcifications of aorta. Lung volume is low. This accentuates the bronchovascular markings. No focal dense consolidation. No pleural effusion. Multiple small coarse calcifications over the left shoulder. IMPRESSION: No focal dense consolidation. This prominence of the bronchovascular markings due to low inspiratory effort. SERVICE DATE: 08/23/17 EXAM TYPE: CAT - CT HEAD WO IV CONTRAST FINDINGS: There is no intracranial hemorrhage, large infarction, or parenchymal mass lesion. There is no extra-axial collection. There is mild scattered hypoattenuation in the bilateral cerebral white matter, which is nonspecific but likely reflects small vessel disease. There is chronic lacunar infarction within the right basal ganglia and in the left cerebellum. There is a subcentimeter focus of mineralization along the right parietal convexity which could represent a densely mineralized meningioma (series 4 image 15). There is mild diffuse brain parenchymal volume loss with prominence of the ventricles and sulci. The ventricles are stable in size without evidence of hydrocephalus. The visualized paranasal sinuses and mastoid air cells are clear. IMPRESSION: - No acute intracranial abnormality. - Redemonstration of chronic changes including right basal ganglia and left cerebellum lacunar infarct, mild small vessel ischemia, and mild diffuse brain parenchymal volume loss. 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 SERVICE DATE: 08/23/17- EXAM TYPE: RAD - XRY-PORTABLE CHEST XRAY FINDINGS: Low lung volumes. Stable mild enlargement of the cardiomediastinal silhouette. There is a dual-lead cardiac pacemaker. No consolidation, pleural effusion or pneumothorax. Degenerative changes in the left shoulder with findings as above osteochondral left ptosis. IMPRESSION: No acute cardiopulmonary process. SERVICE DATE: 08/22/17-610 EXAM TYPE: CAT - CT HEAD WO IV CONTRAST FINDINGS: There is no evidence of acute intracranial hemorrhage or territorial infarction. No abnormal mass effect or midline shift is seen. There is hypodensity in the right anterior internal capsule and the caudate nucleus suggestive of lacunar infarction. Velásquez to white matter differentiation is well preserved. No extra-axial fluid collections are identified. There is a right parietal extra-axial calcification measuring 0.3 x 0.6 cm. It is likely calcified meningioma or dural calcification and appears stable. The lateral ventricles are enlarged and so are the cortical sulci. There is diffuse periarticular hypodensity in both cerebral hemispheres without mass effect. There is a hyperdense appearing tip of basilar artery likely secondary to atherosclerosis. However an aneurysm in this region cannot be excluded. The osseous structures and soft tissues are normal. The mastoid air cells and visualized portions of the paranasal sinuses are well aerated. IMPRESSION: No acute intracranial process seen. 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 Age-related cerebral atrophy versus chronic small ischemic changes. Prominent hyperdensity at the tip of the basilar artery. Question atherosclerosis versus aneurysm. Disposition Summary Disposition Principal Diagnosis: Altered Mental Status Additional Diagnosis: Delirium Discharge Disposition: home or self care Discharge Instructions General Discharge Information Code Status: Full Code Patient's Diet: Diabetic Patient's Activity: As tolerated Follow-Up Instructions/Appts: Please follow up with your PCP and Neurologist within one week of discharge. Please have INR checked on Tuesday08/30/17. Medications at Discharge Discharge Medications: Stop taking the following medications: Warfarin Sodium (Coumadin) 1 MG TABLET ORAL DAILY Warfarin Sodium (Coumadin) 6 MG TABLET ORAL SEE INSTRUCTIONS Oxycodone HCl/Acetaminophen (Oxycodone-Acetaminophen 5-325) 5 MG-325 MG TABLET ORAL DAILY as needed for PAIN Qty = 30 Continue taking these medications: Omeprazole (Omeprazole) 40 MG CAPSULE.DR 1 Capsule ORAL DAILY Aspirin (Ecotrin*) 81 MG TABLET.DR 1 Tablet ORAL DAILY Allopurinol (Allopurinol) 300 MG TABLET 1 Tablet ORAL DAILY Metoprolol Succinate (Metoprolol Succinate) 200 MG TAB.ER.24H 1 Tablet ORAL DAILY @8AM Comments: Diltiazem HCl (Cardizem Cd) 360 MG CAP.ER.24H 1 Capsule ORAL DAILY Furosemide (Lasix) 20 MG TABLET 1 Tablet ORAL DAILY Levetiracetam (Keppra) 500 MG TABLET 500 Milligram ORAL TWICE DAILY Days = 30 Comments: Albuterol Sulfate (Proventil Hfa) 90 MCG HFA.AER.AD 2 Puff Inhale through mouth Every 4 hours as needed for shortness of breath Qty = 1 Simvastatin (Simvastatin*) 20 MG TABLET 1 Tablet ORAL Every night Qty = 90 Potassium Chloride (Potassium Chloride) 20 MEQ TAB.ER.PRT 1 Tablet ORAL DAILY Qty = 45 Start taking the following new medications: Warfarin Sodium (Coumadin) 5 MG TABLET 1 Tablet ORAL DAILY Qty = 30 No Refills Instructions: . Risperidone (Risperdal) 0.25 MG TABLET 1 Tablet ORAL 2 x Daily as needed as needed for Agitation Qty = 14 No Refills Instructions: . Copies To: Kaycee MADDOX,[facility]
--- NOTE | 2017-08-25 22:02 | RADIOLOGY REPORT ---
EXAMINATION: XR PORTABLE CHEST CLINICAL INFORMATION: Aspiration. COMPARISON: Chest x-ray 08/23/2017 TECHNIQUE: Portable frontal view of the chest was obtained. 9:32 PM FINDINGS: Pacemaker lead in right atrium and right ventricle. No change position since prior study. Cardiac and mediastinal contours are normal. There are vascular wall calcifications of aorta. Lung volume is low. This accentuates the bronchovascular markings. No focal dense consolidation. No pleural effusion. Multiple small coarse calcifications over the left shoulder. IMPRESSION: No focal dense consolidation. This prominence of the bronchovascular markings due to low inspiratory effort.
[2017-08-25 22:15] VITALS: BP 104/60
[2017-08-26 01:21] VITALS: BP 96/54
[2017-08-26 06:23] VITALS: BP 130/82
--- NOTE | 2017-08-26 07:16 | PN- Housestaff ---
Aixa MADDOX,[facility] 08/26/17 0714: Subjective Follow-up For: Altered mental state Subjective: Patient seen and examined. Is doing much better today. He is alert and oriented. Offers no complaints. Review of Systems Constitutional: Reports: no symptoms. Objective Last 24 Hrs of Vital Signs/I&O Vital Signs Date Time Temp Pulse Resp B/P B/P Pulse O2 O2 Flow FiO2 Mean Ox Delivery Rate 08/26 06 98.4 70 20 130/82 94 Room Air 08/26 0121 97.6 52 20 96/54 92 Room Air 08/26 0000 92 Room Air 08/25 2215 97.3 59 20 104/60 08/25 2215 91 Room Air 08/25 2100 91 Room Air 08/25 1459 98.2 68 21 125/70 95 Room Air 08/25 0730 97.7 59 18 126/78 Intake & Output 08/26 0800 08/26 0000 08/25 1600 Intake Total 600 300 120 Output Total 450 Balance 150 300 120 Intake, IV 600 300 Intake, Oral 120 Output, Urine 450 Patient 182 lb Weight Physical Exam General Appearance: Alert, Oriented X3, Cooperative, Mild Distress Skin: No Rashes, No Breakdown Skin Temp/Moisture Exam: Warm/Dry Sepsis Skin Exam (color): Normal for Ethnicity HEENT: Atraumatic Cardiovascular: Normal S1, Normal S2, No Murmurs Lungs: Normal Air Movement Abdomen: Soft, No Tenderness Neurological: Normal Speech Extremities: No Edema Last 24 Hrs of Lab/Jayme Results Last 24 Hrs of Labs/Mics: Laboratory Tests 08/26/17 0812: Anion Gap 12, Estimated GFR 48 L, BUN/Creatinine Ratio 29.3 H, PT 66.0 *H, INR 5.95 *H, Valproic Acid 22.0 L 08/26/17 0110: Urine Color KARLA, Urine Clarity CLEAR, Urine pH 6.0, Ur Specific [place] >= 1.030, Urine Protein NEG, Urine Ketones TRACE H, Urine Nitrite NEG, Urine Bilirubin NEG@ICTO, Urine Urobilinogen 1.0, Ur Leukocyte Esterase NEG, Ur Microscopic EXAM NOT REQUIRED, Urine Hemoglobin NEG, Urine Glucose NEG Microbiology 08/26 109 URINE ROUT: Urine Culture - RECD Assessment/Plan Assessment: 86-year-old male with past medical history significant for seizures, hypertension, paroxysmal atrial fibrillation, pacemaker placement, GERD, BPH, diabetes mellitus type 2, history of MRSA was brought to the ED by family members with concerns of diffuse body aches and auditory/visual hallucinations. Assessment: 1. Altered Mental Status 2. History of Hypertension 3. History of Paroxysmal A.fib on Warfarin 4. History of diabetes 5. History of Seizures 6. Supratherapeutic INR Plan: * His delirium has resolved today. Unclear why but likely secondary to delirium. * Continue Risperidone 0.25mg BID for agitation. * EEG today - pending. * Discontinue Depakote as per Neurology. * Continue Keppra 500 mg BID. * Hold Lasix in the context of CHRISTIANO. He is likely dehydrated in the setting of poor oral intake. * Hydrate with NS @ 75ml/hr - 1bag. * Hold Coumadin today for supratherapeutic INR * Insulin SS with Accucheks * Diet: Diabetic * DVT Prophylaxis: On Coumadin. * Code: Full Code Problem List: 1. Altered mental status Pain Ratin Pain Location: none Pain Goal: Remain pain free Pain Plan: none Tomorrow's Labs & Rationales: BEP, INR Bjorn MADDOX,[facility] 08/26/17 1241: Attending MD Review Statement Attending Statement Attending MD Statement: examined this patient, discuss w/resident/PA/[employer], agreed w/resident/PA/[employer], discussed with family, reviewed EMR data (avail), discussed with nursing, discussed with case mgmt, reviewed images, amended to note Attending Assessment/Plan: Patient seen and examined, significantly improved today. He is out of bed and sitting on a recliner. He is awake alert and able to answer my questions appropriately. Vital Signs Date Time Temp Pulse Resp B/P B/P Pulse O2 O2 Flow FiO2 Mean Ox Delivery Rate 08/26 1015 98.4 70 20 130/82 08/26 0623 98.4 70 20 130/82 94 Room Air 08/26 0121 97.6 52 20 96/54 92 Room Air 08/26 0000 92 Room Air 08/25 2215 97.3 59 20 104/60 08/25 2215 91 Room Air 08/25 2100 91 Room Air 08/25 1459 98.2 68 21 125/70 95 Room Air on exam; aox3, nad. cv; s1,s2, rrr resp; clear abd; soft, nt, bs+ ext; no edema Laboratory Tests 08/26 08/26 0812 0110 Chemistry Sodium (137 - 145 mmol/L) 142 Potassium (3.5 - 5.1 mmol/L) 4.3 Chloride (98 - 107 mmol/L) 105 Carbon Dioxide (22 - 30 mmol/L) 25 Anion Gap (5 - 16) 12 BUN (9 - 20 mg/dL) 41 H Creatinine (0.7 - 1.2 mg/dL) 1.4 H Estimated GFR (>60 ml/min) 48 L BUN/Creatinine Ratio (7 - 25 %) 29.3 H Coagulation PT (9.4 - 12.5 SEC) 66.0 *H INR (0.90 - 1.17) 5.95 *H Toxicology Valproic Acid (50 - 120 ug/mL) 22.0 L Urines Urine Color (YEL,AMB,STR) KARLA Urine Clarity (CLEAR) CLEAR Urine pH (5.0 - 8.0) 6.0 Ur Specific [place] (1.001 - 1.035) >= 1.030 Urine Protein (NEG,<30 MG/DL) NEG Urine Ketones (NEG) TRACE H Urine Nitrite (NEG) NEG Urine Bilirubin (NEG) NEG@ICTO Urine Urobilinogen (0.1 - 1.0 EU/dl) 1.0 Ur Leukocyte Esterase (NEG) NEG Ur Microscopic EXAM NOT REQUIRED Urine Hemoglobin (NEG) NEG Urine Glucose (N MG/DL) NEG A/P; 86 y/o M with pmh sig for seizures, hypertension, paroxysmal atrial fibrillation, pacemaker placement, GERD, BPH, diabetes mellitus type 2, history of MRSA, admitted with acute delirium, hallucinations. Patient overall improved significantly. He is not hallucinating and his mental state is back to baseline. INR is supratherapeutic today. We'll continue to hold Coumadin and monitor INR. There is bump in his creatinine. He will be getting gentle IV hydration and will recheck renal function in the morning. Patient to get his EEG today. We can start tapering the Keppra. Last reduce the dose to 250 mg for tonight. Then 250 mg twice a day tomorrow. Continue Depakote. Levels are still subtherapeutic. Patient to be seen by physical therapy. Continue the rest of the management. D/W patient's son at bedside.
--- NOTE | 2017-08-26 12:43 | PN- Neurology ---
Subjective Subjective: Much better, patient and visitors state back to normal no convincing hx of a recurrent seizure Keppra started last winter after a second seizure, per the patient no side effects and no recurrence on med Review of Systems: Headache denied, feels well no complaints Objective Vital Signs and I&Os Vital Signs Date Time Temp Pulse Resp B/P B/P Pulse O2 O2 Flow FiO2 Mean Ox Delivery Rate 08/26 1015 98.4 70 20 130/82 08/26 0623 98.4 70 20 130/82 94 Room Air 08/26 0121 97.6 52 20 96/54 92 Room Air 08/26 0000 92 Room Air 08/25 2215 97.3 59 20 104/60 08/25 2215 91 Room Air 08/25 2100 91 Room Air 08/25 1459 98.2 68 21 125/70 95 Room Air Intake & Output 08/26 1600 08/26 0800 08/26 0000 08/25 1600 08/25 0800 08/25 0000 Intake Total 600 300 120 120 680 Output Total 450 Balance 150 300 120 120 680 Intake, IV 600 300 80 Intake, Oral 120 120 600 Output, Urine 450 Patient 182 lb Weight Physical Exam: Alert, oriented, speech and language normal EOMI, [id number], VFF left upper facial palsy - 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 Current Medications: Current Medications Sig/Pablo Start time Last Medication Dose Route Stop Time Status Admin Acetaminophen 650 MG Q6P PRN 08/23 1600 AC PO Acetaminophen 1,000 MG Q6P PRN 08/23 1600 AC IV Albuterol Sulfate 2 PUF Q4 PRN 08/22 0715 AC INH Allopurinol 300 MG DAILY 08/22 09 AC 08/26 PO 1015 Aspirin Buffered 81 MG DAILY 08/23 1600 AC 08/26 PO 1015 Diltiazem HCl 360 MG DAILY 08/24 09 AC 08/26 PO 1015 Divalproex Sodium 500 MG BID 08/25 2100 AC 08/26 PO 1015 Insulin Aspart 0 TIDAC 08/25 1700 AC 08/26 SC 1218 Levetiracetam 500 MG BID 08/22 09 AC 08/26 PO 1015 Metoprolol Succinate 200 MG DAILY 08/22 09 AC 08/26 PO 1015 Omeprazole 40 MG DAILY AC 08/24 07 AC 08/25 PO 0632 Patient Medication 1 ED ONE ONE 08/25 1700 DC Teaching ED 08/25 1701 Risperidone 0.25 MG BID 08/24 1413 AC 08/26 PO 1015 Sodium Chloride 1,000 ML Q13H 08/26 1045 AC 08/26 IV 08/26 2344 1221 Sodium Chloride 1,000 ML Q13H 08/25 1600 DC 08/25 IV 08/26 0459 1723 Valproate Sodium 500 MG Q12 08/24 0900 DC 08/25 Sodium Chloride 50 ML IV 0935 Results Last 24 Hours of Lab Results: Laboratory Tests 08/26 08/26 0812 0110 Chemistry Sodium (137 - 145 mmol/L) 142 Potassium (3.5 - 5.1 mmol/L) 4.3 Chloride (98 - 107 mmol/L) 105 Carbon Dioxide (22 - 30 mmol/L) 25 Anion Gap (5 - 16) 12 BUN (9 - 20 mg/dL) 41 H Creatinine (0.7 - 1.2 mg/dL) 1.4 H Estimated GFR (>60 ml/min) 48 L BUN/Creatinine Ratio (7 - 25 %) 29.3 H Coagulation PT (9.4 - 12.5 SEC) 66.0 *H INR (0.90 - 1.17) 5.95 *H Toxicology Valproic Acid (50 - 120 ug/mL) 22.0 L Urines Urine Color (YEL,AMB,STR) KARLA Urine Clarity (CLEAR) CLEAR Urine pH (5.0 - 8.0) 6.0 Ur Specific [place] (1.001 - 1.035) >= 1.030 Urine Protein (NEG,<30 MG/DL) NEG Urine Ketones (NEG) TRACE H Urine Nitrite (NEG) NEG Urine Bilirubin (NEG) NEG@ICTO Urine Urobilinogen (0.1 - 1.0 EU/dl) 1.0 Ur Leukocyte Esterase (NEG) NEG Ur Microscopic EXAM NOT REQUIRED Urine Hemoglobin (NEG) NEG Urine Glucose (N MG/DL) NEG Assessment/Plan Assessment: No clear indication of seizure Plan: continue Keppra at prior to admission doses D/C depakote, a change to depakote was considered but would defer f/u after discharge with his own neurologist
[2017-08-26 14:50] VITALS: BP 130/78
--- NOTE | 2017-08-26 15:09 | Patient Discharge Instructions ---
Discharge Instructions General Discharge Information You were seen/treated for: Altered Mental Status Special Instructions: Please follow up with your PCP and Neurologist within one week of discharge. Please have INR checked on Tuesday08/30/17. Diet Continue normal diet: Yes Recommended Diet: Diabetic Activity Full Activity/No Limits: Yes Acute Coronary Syndrome Inclusion Criteria At DC or during hospital stay patient has or had the following: ACS DIAGNOSIS No Discharge Core Measures Meds if any: Prescribed or Continued at Discharge Meds if any: NOT Prescribed or Continued at Discharge Congestive Heart Failure Inclusion Criteria At DC or during hospital stay patient has or had the following: CHF DIAGNOSIS No Discharge Core Measures Meds if any: Prescribed or Continued at Discharge Meds if any: NOT Prescribed or Continued at Discharge Cerebrovascular accident Inclusion Criteria At DC or during hospital stay patient has or had the following: CVA/TIA Diagnosis No Discharge Core Measures Meds if any: Prescribed or Continued at Discharge Meds if any: NOT Prescribed or Continued at Discharge Venous thromboembolism Inclusion Criteria VTE Diagnosis No VTE Type NONE VTE Confirmed by (Test) NONE Discharge Core Measures - Per Current guidelines, there needs to be overlap - treatment for the first 5 days of Warfarin therapy. - If discharged on Warfarin prior to 5 days of - overlap therapy, the patient will need to be - assessed for post discharge needs including - *Post discharge parental anticoagulation - *Warfarin and/or parental anticoagulation education - *Follow up date to check INR post discharge At least 5 days overlap therapy as Inpatient No Meds if any: Prescribed or Continued at Discharge Note: Overlap Therapy is Warfarin and Anticoagulant Meds if any: NOT Prescribed or Continued at Discharge
[2017-08-26 22:19] VITALS: BP 110/60
[2017-08-27 06:28] VITALS: BP 136/70
--- NOTE | 2017-08-27 06:36 | PN- Housestaff ---
See Addendum Subjective Follow-up For: Delirium Subjective: Last night, the patient had another episode of confusion but this morning he is alert and oriented 3. He feels well this morning and remembers the confusion but cannot explain it. He has no other complaints. He is actually hoping to go home soon. Review of Systems Constitutional: Reports: no symptoms. EENTM: Reports: no symptoms. Cardiovascular: Reports: no symptoms. Respiratory: Reports: no symptoms. Gastrointestinal: Reports: no symptoms. Genitourinary: Reports: no symptoms. Musculoskeletal: Reports: no symptoms. Skin: Reports: no symptoms. Neurological/Psychological: Reports: see HPI. Hematologic/Endocrine: Reports: no symptoms. Immunologic/Allergic: Reports: no symptoms. Objective Last 24 Hrs of Vital Signs/I&O Vital Signs Date Time Temp Pulse Resp B/P B/P Pulse O2 O2 Flow FiO2 Mean Ox Delivery Rate 08/28 627 98.0 66 18 136/70 94 Room Air 08/26 2219 98.7 61 20 110/60 96 Room Air 08/26 1600 Room Air 08/26 1450 98.5 72 20 130/78 95 Room Air 08/26 1015 98.4 70 20 130/82 Intake & Output 08/27 0800 08/27 0000 08/26 1600 Intake Total 1080 420 Output Total Balance 1080 420 Intake, IV 600 300 Intake, Oral 480 120 Number 2 Bowel Movements Physical Exam General Appearance: Alert, Oriented X3, Cooperative, No Acute Distress Cardiovascular: Regular Rate Lungs: Clear to Auscultation Abdomen: Normal Bowel Sounds, Soft, No Tenderness Current Medications: Current Medications Sig/Pablo Start time Last Medication Dose Route Stop Time Status Admin Acetaminophen 650 MG Q6P PRN 08/23 1600 AC PO Acetaminophen 1,000 MG Q6P PRN 08/23 1600 AC IV Albuterol Sulfate 2 PUF Q4 PRN 08/22 0715 AC INH Allopurinol 300 MG DAILY 08/22 09 AC 08/26 PO 1015 Aspirin Buffered 81 MG DAILY 08/23 1600 AC 08/26 PO 1015 Diltiazem HCl 360 MG DAILY 08/24 0900 AC 08/26 PO 1015 Divalproex Sodium 500 MG BID 08/25 2100 DC 08/26 PO 1015 Insulin Aspart 0 TIDAC 08/25 1700 AC 08/26 SC 1218 Levetiracetam 500 MG BID 08/22 0900 AC 08/26 PO 2006 Metoprolol Succinate 200 MG DAILY 08/22 0900 AC 08/26 PO 1015 Omeprazole 40 MG DAILY AC 08/24 0700 AC 08/27 PO 612 Risperidone 0.25 MG BID 08/24 1413 AC 08/26 PO 2006 Sodium Chloride 1,000 ML Q13H 08/26 1045 DC 08/26 IV 08/26 2344 1221 Last 24 Hrs of Lab/Jayme Results Last 24 Hrs of Labs/Mics: Laboratory Tests 08/26/17 0812: Anion Gap 12, Estimated GFR 48 L, BUN/Creatinine Ratio 29.3 H, PT 66.0 *H, INR 5.95 *H, Valproic Acid 22.0 L Assessment/Plan Assessment: 86-year-old male with past medical history significant for seizures, hypertension, paroxysmal atrial fibrillation, pacemaker placement, GERD, BPH, diabetes mellitus type 2, history of MRSA was brought to the ED by family members with concerns of diffuse body aches and auditory/visual hallucinations. Assessment: 1. Altered Mental Status 2. History of Hypertension 3. History of Paroxysmal A.fib on Warfarin 4. History of diabetes 5. History of Seizures 6. Supratherapeutic INR Plan: Delirium is of unclear etiology. Follow-up neurology recommendations. Continue Risperidone 0.25mg BID for agitation. EEG - pending. Discontinued Depakote as per Neurology. Continue Keppra 500 mg BID. Hold Lasix in the context of CHRISTIANO. He is likely dehydrated in the setting of poor oral intake. Hydrate with NS @ 75ml/hr - 1bag. Hold Coumadin today for supratherapeutic INR Insulin SS with Accucheks Diet: Diabetic DVT Prophylaxis: On Coumadin. Code: Full Code Problem List: 1. Altered mental status Pain Ratin Pain Location: no Pain Goal: Remain pain free Pain Plan: see a/p Tomorrow's Labs & Rationales: inr, bep
[2017-08-27 09:05] LABS: PT 44.4 SEC (9.4-12.5)
[2017-08-27 15:33] VITALS: BP 110/68
[2017-08-27 22:11] VITALS: BP 122/80
[2017-08-28 07:35] VITALS: BP 146/78
--- NOTE | 2017-08-28 09:17 | PN- Housestaff ---
See Addendum Subjective Follow-up For: Altered mental state Complaints: no complaints Subjective: No acute events overnight, patient has no c/o this morning. Patient states he is doing much better today, had finished his breakfast. Denies Visual and auditory hallucinations. Review of Systems Constitutional: Reports: no symptoms. EENTM: Reports: no symptoms, hearing changes (2ndary to misplaced hear devic). Cardiovascular: Reports: no symptoms. Respiratory: Reports: no symptoms. Gastrointestinal: Reports: no symptoms. Genitourinary: Reports: no symptoms. Musculoskeletal: Reports: no symptoms. Skin: Reports: no symptoms. Neurological/Psychological: Reports: no symptoms. Hematologic/Endocrine: Reports: no symptoms. Immunologic/Allergic: Reports: no symptoms. Objective Last 24 Hrs of Vital Signs/I&O Vital Signs Date Time Temp Pulse Resp B/P B/P Pulse O2 O2 Flow FiO2 Mean Ox Delivery Rate 08/28 0735 97.8 62 16 146/78 94 Room Air 08/27 2211 98.3 68 19 122/80 96 Room Air 08/27 1533 98.3 62 20 110/68 94 08/27 0918 72 130/68 Intake & Output 08/28 1600 08/28 0800 08/28 0000 Intake Total 200 110 Output Total 500 200 Balance -300 -90 Intake, IV 10 Intake, Oral 200 100 Output, Urine 500 200 Physical Exam General Appearance: Alert, Oriented X3, Cooperative Skin: No Rashes HEENT: Atraumatic, EOMI Cardiovascular: Regular Rate, Normal S1, Normal S2 Lungs: Clear to Auscultation, Normal Air Movement Abdomen: Normal Bowel Sounds, Soft, No Tenderness Neurological: Normal Speech, Sensation Intact Extremities: No Edema, Normal Pulses, No Tenderness/Swelling Current Medications: Current Medications Sig/Pablo Start time Last Medication Dose Route Stop Time Status Admin Acetaminophen 650 MG Q6P PRN 08/23 1600 AC PO Acetaminophen 1,000 MG Q6P PRN 08/23 1600 AC IV Albuterol Sulfate 2 PUF Q4 PRN 08/22 0715 AC INH Allopurinol 300 MG DAILY 08/22 09 AC 08/27 PO 0918 Aspirin Buffered 81 MG DAILY 08/23 1600 AC 08/27 PO 0918 Diltiazem HCl 360 MG DAILY 08/24 09 AC 08/27 PO 09 Insulin Aspart 0 TIDAC 08/25 1700 AC 08/27 SC 1726 Levetiracetam 500 MG BID 08/22 0900 AC 08/27 PO 2005 Metoprolol Succinate 200 MG DAILY 08/22 09 AC 08/27 PO 09 Omeprazole 40 MG DAILY AC 08/24 0700 AC 08/28 PO 0518 Risperidone 0.25 MG BID 08/24 1413 AC 08/27 PO 2005 Assessment/Plan Assessment: Pt. is 87yoM with PHMx of seizures, HTN, Paroxysmal A.fib, GERD, BPH, DM type II, history of MRSA, s/p Pacemaker placement, who was brought to hospital due to Auditory and Visual hallucinations. Patient appears to be back to baseline level of functioning, he is tolerating his diet and medications, expresses desire to be discharged home. Assessment: 1. Supratherapeutic INR Hx of warfarin use, INR on 08/27/17 is 4.02, trending down from high of 5.95 of 08/26/17 2. Stage I CHRISTIANO Elevation of Registered Nurse Cardiac Telemetry. > 0.3 on 08/26/17 up to 1.4 from 1.0 upon admission. Trending down to 1.1 on 08/27/17. 3. Altered mental Status- resolved 4. History of Seziures 5. History of Hypertension 6. History of Paroxysmal A. Fib 7. History of DMII 8. Pacemaker placement Plan: *Hold Warfin pending PT/INR results - will schedule follow up visit outpatient on Tuesday *F/u EEG *Continue Keppra 500mg BID *Continue daily Glucose monitoring with Sliding Scale Insulin, continue home meds for DMII *Continue Diltizaem, Metoprolol for HTN *Hold Lasix today pending BUN/Registered Nurse Cardiac Telemetry. labs *D/c today Problem List: 1. Altered mental status Pain Ratin Pain Location: N/A Pain Goal: Remain pain free Pain Plan: Tylenol if needed Tomorrow's Labs & Rationales: None. Discharge Plan Discharge Disposition: home Stable for Discharge? Yes Anticipated Discharge (Day): today If Discharged Today/In 24 Hrs: enter antc discharge ord
[2017-08-28 10:37] VITALS: BP 146/78
[2017-08-28] MEDS ORDERED: RISPERDAL0.25 M1 PO ×2 (10:50→11:50)
[2017-08-28 11:29] LABS: PT 27.2 SEC (9.4-12.5)
[2017-08-28] MEDS ORDERED: COUMADIN5 M2 PO ×2 (11:44→11:50)
--- NOTE | 2017-08-29 15:44 | ELECTROENCEPHALOGRAM REPORT ---
Electroencephalogram Report Electroencephalogram Results Date of service: 08/26/17 Attending MD: Yohana Milan MD Button And Buckle Maker: Corine Titus Test Utilizes: 10-20 system, 21 lead 18 channel digital recording Pertinent Hx/Physical/Neuro Findings/Clin Diagnosis: Altered mental status, patient on keppra Interpretation: The background is composed of mildly irregular posterior 9-10 hertz alpha in the posterior regions and low to moderate amplitude frontal and more widespread beta. Muscle artifact is nearly constantly present. No focal, lateralized or epileptiform abnormalities noted. Hyperventilation could not be done, photic stimulation was unremarkable. Impression: Mild generalized slowing of the backgrounds with prominent beta which could indicate medication effect or drowsiness. No epileptiform or focal abnormalities are found.
== END 2017-08-28 12:45 | disposition home health service (06) | DRG 880 ==
LOC: ERH 02:34 → 2NA 08-23 11:56 → ERHI 08-23 11:56 → EDBEDREQ 08-23 12:26 → ENTRNSPT 08-23 13:44 → EDTRNSPTSTS 08-23 13:47 → EDTRNSPT 08-23 13:47 → 2NA 08-23 13:59 → CMPTRNSPT 08-23 14:19 → ENPENDDIS 08-28 11:46 → 2NA 08-28 12:45
PROVIDERS: Emergency Medicine; Internal Medicine; Pediatrics
DX: R44.0 Auditory hallucinations (principal); R44.1 Visual hallucinations; G40.909 Epilepsy, unspecified, not intractable, without status epilepticus; I48.0 Paroxysmal atrial fibrillation; E11.9 Type 2 diabetes mellitus without complications; R41.0 Disorientation, unspecified; I10 Essential (primary) hypertension; K21.9 Gastro-esophageal reflux disease without esophagitis; N40.0 Benign prostatic hyperplasia without lower urinary tract symptoms; Z86.14 Personal history of Methicillin resistant Staphylococcus aureus infection; Z95.0 Presence of cardiac pacemaker; M10.9 Gout, unspecified; E78.5 Hyperlipidemia, unspecified; Z79.01 Long term (current) use of anticoagulants
CPT/HCPCS: 2NAP; 36415; 36592; 71045; 80307; 81001; 81003; 82436; 87040; 87086; 93005; 93010; 95816; 96372; 97116-GO; 97161-GP; 99291; G0480; J0131; J1630; J1644; J3490; J7042; J7060; J7508